=== PATIENT | female | born 1965 | race Caucasian/White ===

== ENCOUNTER 2021-05-20 17:11 | Inpatient (IN) | payer OTHER ==
[~2021-05-20] VITALS: Ht 172.7 cm; Wt 97.1 kg
--- OUTSIDE RECORDS SUMMARY | 2021-05-20 18:32 | XMS ---
PreManage Notification: [employer]ing Manager Events No recent Security Events currently on file [facility] There are no care providers on record at this time. David has no Care Guidelines for this patient. Lidia VISIT COUNT (12 MO.) 1 KAREN Tinajero TOTAL 1 NOTE: Visits indicate total known visits. ED/C VISIT TRACKING (12 MO.) 05/20/2021 17:12 KAREN Brown OR TYPE: Emergency COMPLAINT: - SOB INPATIENT VISIT TRACKING (12 MO.) No inpatient visits to display in this time frame [email or web address]
--- NOTE | 2021-05-20 21:11 | NUR ---
2100 - Pt arrived from ED via stretcher.
--- NOTE | 2021-05-20 21:28 | NUR ---
ADMISSION CHARTING COMPLETE, PT IS POOR HISTORIAN. SHE REPORTS SHE CAN NOT REMEBER OR IS UNSURE IN REDARDS TO HER HISTORY. SEE PAPER CHART FOR PACKET FROM [facility]
--- NOTE | 2021-05-20 22:13 | NUR ---
COOP WITH ASSESSMENT, WAS MEDICATED PRIOR TO DO SKIN ASSESSMENT
--- NOTE | 2021-05-20 23:35 | NUR ---
PT ON 3LNC, TELE#[address], SR WITH OCC SVPB'S, DENIES CP, NO SOB, CPOX IN PLACE. PT HAS VERY POOR SKIN TURGOR, TIPS OF FINGERS COOL, DUSKY, WARM BLANKET TO ARMS, BRUISED AREAS OVER ARM. SL FIELD START RFA. PATENT., NO C/O ADVERSE REACTION TO LEVAQUIN ABX. TOLERATED WELL. TOOK MEDS W/O PROBLEMS, MED ED DONE, PT WELL AWARE OF MEDS AND DOSAGES. FRAGILE SKIN, RASH OVER R AXILLA, UNDER R BREAST, R PANNUS AND R GROING, REDNESS AND WARMTH NOTED MID THICK TO TOES BILAT. TOES/HEEL DUSKY, POOR FINGER AND CAPILLARY REFILL, L HEEL OPEN AREA, ALLEVYN APPLIED SLIGHT BROWN DISCHARGE, NO ODOR. WOUND VAC OVER BUTTOKS AREA, PATENT. SCABBED OVER NOT OPEN AREAS OVER BACK UPPER THIGHS BILAT. ATTENDS IN PLACE.IS W/C BOUND, LE WEAKNESS, ALERT AND ORIENTED, IRRITABLE, ANXIOUS AFFECT, EASILY REDIRECTABLE
--- NOTE | 2021-05-20 23:53 | NUR ---
RESTING, 3lnc, NO DISTRESS, TELE#3 IN PLACE, CPOX IN PLACE, WOUND VAC PATENT. CALL LOIGHT AND FLUIDS AT BEDSIDE
--- NOTE | 2021-05-21 01:27 | NUR ---
INCONTINENT OF LARGE AMOUNT OF URINE, ATTENDS CHANGED, SKIN CARE, BARRIER CREAM APPLIED, SACRAL WOUND VAC IN PLACE, PATENT. ALLEVYN TO L HEEL PATENT, LE ELEVATED, DECREASED REDNESS LE NOTED, ELEVTED. COOPERATIVE WITH ASSESSMENT AND VITALS,TELE# [address] SR/SVR, DENIES CP OR SOB. CPOX IN PLACE SATS 88-90%. TIP OF FINGERS AND TOES MORE PINKISH, WARM BLANKETS IN PLACE. TOLERATING SANDWICH AND FLUIDS,
--- NOTE | 2021-05-21 03:05 | NUR ---
On 3LNC, CPOX in place 93% sats, tele#[address] SR, eyes closed, no distress, wound vac in place, legs elevated. call light and fluids at bedside
--- NOTE | 2021-05-21 05:55 | NUR ---
Pt has slept most of this shift. O2 2L NC on admission, raised up to 3L then to 5L then back down to 3L at 0545 as her sats were 100%. lungs dim at bases, occ most cough with yellow phlegms. while turning she desatted to 78% on 3L NC, increaesd to 4L then 5L and currently at 6LNC, IS hands on demonstration done after several cues only up to 500. Not very receptive to teaching, irritable mood when asked to take a deep breath and repositioning ear pulse ox probe or NC back in place. currently on 6LNC sats 91%. . tele#[address], NS with occ SVPB's. denies CP. Received lasix and bed weight was done at this time 104.9KG. Pt has several scabbed over areas over back of thighs and R groin area. has wound vac over sacral area. R heel open area had Allevyn dressing and it was replaced at this time again. LE redness, partially marked. decreased redness and edema to LE noted. elevated with pillows.
--- NOTE | 2021-05-21 07:20 | NUR ---
THIS RN RECEIVED REPORT FROM AILYN ROMAN. PT APPEARS TO BE RESTING AT THIS TIME WITH RESPIRTIONS NOTED AND PT IS CURRENTLY ON 6L NC.
[2021-05-21] MEDS ORDERED: TYLENOL EXTRA500 MG PO (08:00)
[2021-05-21] MEDS ORDERED: AMITRIPTYLINE H75 MG PO (08:01)
[2021-05-21] MEDS ORDERED: BUPRENORPHINE HC2 MG SL (08:02)
[2021-05-21] MEDS ORDERED: CALCIUM 600 +1 EAC5 PO (08:03)
[2021-05-21] MEDS ORDERED: ELIQUIS5 MG PO (08:04)
[2021-05-21] MEDS ORDERED: IRON325 M1 PO (08:05)
[2021-05-21] MEDS ORDERED: ADVAIR HFA 45-212 GM INH (08:05)
[2021-05-21] MEDS ORDERED: LASIX20 MG PO (08:06)
[2021-05-21] MEDS ORDERED: MUCINEX600 MG PO (08:07)
[2021-05-21] MEDS ORDERED: NEURONTIN800 MG PO (08:07)
[2021-05-21] MEDS ORDERED: ROBAFEN100 MG/5 M PO (08:08)
[2021-05-21] MEDS ORDERED: LEVOFLOXACIN500 MG PO (08:09)
[2021-05-21] MEDS ORDERED: IMODIUM A-D2 M2 PO (08:11)
[2021-05-21] MEDS ORDERED: THROAT DROPS2.8 MG MM (08:12)
[2021-05-21] MEDS ORDERED: NARCAN4 MG NAS (08:13)
[2021-05-21] MEDS ORDERED: NICODERM CQ1 EAC2 TOP (08:14)
[2021-05-21] MEDS ORDERED: HYDROCODON-ACE1 EA10 PO (08:14)
[2021-05-21] MEDS ORDERED: POTASSIUM CHLO10 ME2 PO (08:15)
--- NOTE | 2021-05-21 08:15 | NUR ---
THIS RN IN PTS ROOM TO GIVE MRONIGN MEDS. PT GORGY AND NOT ANSWERING QUESTIONS APPROPRIATLY. THIS RN CHECKED PTS OXYGEN 97% ON 6L NC. THIS RN TURNED PT DOWN TO 3L NC AND STATS RANGED 91-94%. PT TOLERATING WELL. THIS RN ASSISTED BY MARIE MAN CHANGED PT, PT AFTER BEING CHANGED STATES THAT SHE NEEDS TO PEE. SIMRAN MAN IN ROOM TO PUT PT ON BEDPAN. THIS RN DID NOTE THAT PTS TEGADERM WAS LIFTING OFF OF HER WOUND VAC SITE, WOUND CARE CONSULT IN.
[2021-05-21] MEDS ORDERED: PROBIOTIC1 EAC1 PO (08:16)
[2021-05-21] MEDS ORDERED: SEROQUEL25 MG PO (08:16)
[2021-05-21] MEDS ORDERED: VENTOLIN HFA18 GM INH (08:17)
[2021-05-21] MEDS ORDERED: TUMS200 MG PO (08:17)
--- NOTE | 2021-05-21 08:21 | NUR ---
MED REC COMPLETE
--- NOTE | 2021-05-21 09:30 | NUR ---
THIS RN IN PTS ROOM TO CHECK ON PT. THIS RN SPOT CHECKED PTS OXYGEN, PT STATING AT 84% 3L NC. THIS RN CHANGED PT OVER TO 5L OXYMASK. PT TOLERATING TREATMENT AND STATS NOW SUSTAINED GREATER THAN 91%. CPOX IN PLACE AND READING IN TANDEM WITH WALL MONITOR.
--- NOTE | 2021-05-21 12:45 | NUR ---
this rn pts room per request of avery quispe who was attempting a new iv. pt has muscle spasms so this rn provided pts arm with support. avery able to get an external juglar iv placed on the left side, draws back blood and flushes well. meds given. md in room.
--- NOTE | 2021-05-21 14:05 | NUR ---
this rn provided verbal update on pts status to pts sister in law rina.
--- NOTE | 2021-05-21 14:45 | NUR ---
WOUNE NURSE CONSULT COMPLETED ON PT WITH PRIMARY NURSE AT BEDSIDE. PT HAS STAGE 4 SACRAL PRESSURE INJURY WITH WOUND VAC IN PLACE. WOUND VAC HAS BECOME DISLODGED. WOUND VAC REPLACED AND POWER CORD DELIVERED FROM [facility]. WOUND BED IS PINK WITH GRANULATING TISSUE. NO S/SX OF INFECTION. MEASUREMENTS NOT ASSESSED. PRESSURE INJURY- UNSTAGABLE TO LEFT HEAL WITH DRY ESCHAR IN PLACE. ALLEVYN APPLIED OVER TOP. RIGHT HEEL WITH BLANCHABLE REDNESS. HEEL PROTECTORS PLACED AND HEELS FLOATED. PT TOLERATED DRESSING CHANGES WITH OUT ISSUE. WOUND VAC CAN BE CHANGED Q3 DAYS NEEDED. REDENED QUETA AREA/GROIN WITH SOMEESCORIATION PRESENT. KEEP AREA CLEAN/DRY AND APPLY BARRIOR CREAM.
--- NOTE | 2021-05-21 14:45 | NUR ---
THIS RN IN PTS ROOM WITH LOWELL ROMAN TO CHANGE PTS WOUND VAC DUE TO THE DRESSING LIFTING UP AT [facility]. ONCE DRESSING CHANGE WAS COMPLETE, STAFF NOTED THAT THERE WAS NO ACO COORDINATOR PRESENT, ANOTHER STAFF MEMEBER WAS ABLE TO COLLECT THE ACO COORDINATOR FROM PTS FACILITY. AT 1630- DRESSING PLACED TO SUCTION WTIH A GOOD SEAL NOTED ON MACHINE.
--- NOTE | 2021-05-21 16:45 | NUR ---
THIS RN IN PTS ROOM AFTER COMPLETED DRESSING CHANGE. THIS RN PROVIDED PT WITH TYLENOL DUE TO PT STATING "OW" WHENEVER STAFF TOUCHED HER, THIS IS WHERE SHE LOCALIZED HER PAIN, WHEREVER SHE WAS TOUCHED BY STAFF. PT FINALLY ABLE TO STATE THAT SHE WAS PAINFUL IN HER COCCYX AREA, THIS RN ASSISTED PT TO LAY ON HER RIGHT SIDE TO ALLEVIATE PAIN. THIS RN POSITIONED PT WITH PILLOWS FOR COMFORT. THIS RN ALSO TURNED PTS OXYGEN DOWN TO 4L NC. PT ABLE TO PRODUCE SOME GOOD COUGHS AFTER BEING MOVED AROUND IN BED- SECRETIONS MOVING.
--- NOTE | 2021-05-21 19:23 | NUR ---
O2 NC in place, no distress, eyes closed. call light and fluids at bedside
--- NOTE | 2021-05-21 22:00 | NUR ---
O2 3L NC, TELE/CPOX EAR PROBE 94%, REST 15, NON DISTRESS, PT IS A MOUTH BREATHER TOO. LUNGS UPPER R COARSE SOUND, DIM AT BASES. IRRITABLE MOOD, GOES BACK TO SLEEP, AWAKES EASILY. SL RFA PATENT, AND JUGULAR AREA. MULTIPLE BRUISING ARMS, HEALING, EDEMA GENERALIZED, REDNESS OVER R AXILLARY, R PANNUS, R GRON BEHINF BOTH THIGHS AND FRONT THIGHT BILAT, LEGS AND FEET, L HEEL ALLEVYN IN PLACE, HEEL PROTECTORS IN PLACE. SCABBED OVER AREA OPEN, MOIST, NO DRAINAGE BEHIND BOTH UPPER THIGHS ANR R GROIN. WOUND VAC OVER SACRAL AREA. INC OF URINE, REQUIERES SEVERAL CUES. CLEAN ATTENDS AND BARRIER CREAM APPLIED. LEGS ELEVATED, TOOK MEDS W/O PROBLEMS, MOIST PRODUCTIVE COUGH PRESENT, COUGH SYRUP GIVEN ON REQUESTS. TOLERATING LIQUIDS WELL. NO EMESIS. PT REQUIRED SEVERAL CUES TO PLACE IN SITTING POSITION IN BED TO TAKE MED, INFORMED OF POSSIBLE ASPIRATION IF TAKING MEDS WHILE LAYING DOWN, SEMI RECEPTIVE.
--- NOTE | 2021-05-22 00:20 | NUR ---
PT ON 3L NC, DESATTED TO 80%, PLACED BACK ON OXYMASK, PT AWOKEN, IRRITABLE MOOD, TOOK SEVERAL CUES FOR PT TO TAKE DEEP BREATHS, DECLINED TO USE IS. SATS 84%, RT NOTIFIED. RT INROOM, FIXING EAR PROBE/FINGER PROBE, PT RECEIVED A NEB TX, DROWSY. HOB ELEVATED. SATS WENT UP TO 95% AFTER TX. SATS DROPPED AGAIN SOON AFTERWARDS TO 84-87%, RT IN ROOM.
--- NOTE | 2021-05-22 00:25 | NUR ---
DR FULLER NOTIFIED OF PT UNABLE TO KEEP SATS UP, RESP 14-15, RT HERE AND HE TALKED TO HER. NEW ORDERS FOR VBG AND TO START BIPAP OBTAINED.
--- NOTE | 2021-05-22 00:42 | NUR ---
CBG PER NURSING JUDGEMENT. 86. LAB IN ROOM DRAWING VBG. RT IN ROOM, PT ON 3L OXYMASK SATS DROP BETWEEN 78-87%. PT DROWSY, PROCEDURE EXPLAINED, REQUIERES SEVERAL CUES TO BE COMPLIANT. MORE AWAKE NOW. BIPAP ON, RT CALCULATING SETTING
--- NOTE | 2021-05-22 01:26 | NUR ---
on bipap sats 91% R17, no distress, toleratiang well.
--- NOTE | 2021-05-22 01:34 | NUR ---
Pt on BIPAP, desatting to 83-85%, bipap on, RN in room, RT to see pt
--- NOTE | 2021-05-22 01:43 | NUR ---
on Bipap, sats 91-94%, per tele cpox ear probe changed to R ear. tele#[address] SR w occ SVPB's
--- NOTE | 2021-05-22 03:00 | NUR ---
iNCONTINENT OF URINE, ATTENDS CHANGED, TOLERATED WELL. ON BIPAP, SATS 89-96% R17, TOLERATING BIPAP AND SIPS OF FLUIDS. LE ELEVATED IN PILLOWS ALLEVYN TO LEFT HEEL INTACT. HEEL PROTECTORS IN PLACE
--- NOTE | 2021-05-22 05:08 | NUR ---
PT WAS ON 2-3L NC/OXYMASK AT BEGINING OF SHIFT, DESATTED DOWN TO 78% SEVERAL TIMES. VBG OBTAINED, WNL, WAS PLACED ON BIPAP 12//40%, HAS MAINTEINED SATS 89-96%. TOLERATING WELL. TELE#3 IN [place], SR WITH OCC SVPBS, DENIES CP. HAS BEEN VERY DROWSY, HAD QUICK PERIODS OF APNEA AND TWITCHING LIKE TREMORS OF UPPER BODY AND HANDS. RESOLVED AT THIS TIME. MULTIPLE BRUISING OF ARMS HEALING, DECREAESD REDNESS OF LE AND EDEMA NOTED. l JUGULAR IV PATENT, SL RA, WOUND VAC TO SACRAL AREA PATENT. L HEEL ALLEVYN IN PLACE, MULTIPLE RED AREAS OVER OTHER PARTS OF BODY NO CHANGES. IRRITABLE MOOD, SEMI RECEPTIVE TO INOFRMATION GIVE, CONT TO REINFORCE DIET AND O2 THERAPY. USES CALL LIGHT, INCONTINENT OF URINE.
--- NOTE | 2021-05-22 07:15 | NUR ---
this rn received report from kristie quispe. pt appears to be resting with respitations noted and call light within reach. pt on bipap at [facility] time
--- NOTE | 2021-05-22 08:00 | NUR ---
this rn in pts room to give morning meds. pt on bipap. pt tolerating well. this rn to come back to give meds. pt sating mid 90s. call light within reach
--- NOTE | 2021-05-22 08:20 | NUR ---
patient is resting in the bed with bipap on. this DEPARTMENT CHAIRPERSON reatached the O2 moniter to her ear. no needs at this time. room tidy, call light with in reach.
--- NOTE | 2021-05-22 13:35 | NUR ---
THIS RN IN PTS ROOM TO GIVE PT AFTERNOON MEDS. PT SITTING IN BED, PT ON 3L NC AT THIS TIME AND MORE ALERT THAN SHE WAS THIS AM. LAINEY MAN IN ROOM WITH THIS RN TO CHANGE PT DUE TO INCONTINENCE OF URINE. PT TOLERATED OKAY DID NOT COMPLAIN TOO MUCH OF PAIN. PT REPOSITIONED IN BED- HIPS FLOATED WITH PILLOWS TO PROVIDE RELIEF OF PRESSURE. PT STATES NOT NEEDING ANYTHING AT THIS TIME. 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
--- NOTE | 2021-05-22 14:51 | NUR ---
this rn placed pt on bipap at this time due to pt desatting to 78% on 3l nc.
--- NOTE | 2021-05-22 18:45 | NUR ---
THIS RN IN PTS ROOM TO CHANGE PT. THIS RN NOTED THAT PTSWOUND VAC WAS RAINING SEROSANGUINOUS FLUID. THIS RN ALSO NOTED THAT PT HAD TO OPEN SKIN TEARS NOW (1 WAS NOTED AROUND 1400 AND AN ALLEVEN WAS PLACED). THIS RNREMOVED INTIAL ALLEVYN AND PLACED A LARGE FOAM PAD AND SECURED WITH FOAM TAPE.
--- NOTE | 2021-05-22 20:16 | NUR ---
Pt on 3LNC, Lungs dim at bases with fine crackles, moist productive cough of yellow thick phlegm present, denies need for cough syrup.tele#3 SR, no c/o CP, no SOB during procedure, tolerated well. Wound Vac dressing to coccyx/sacrum area replaced. patent now, wound vac in place. procedure explained, pt cooperative. wouund vac dressing done by Kayla santillan primary RN and this nurse helping. foam dressing under thighs area pt instructed not to scratch them off, staed "mmmm,ok but I will if I start itching.. decreased redness R leg, decreased edema. open/red areas under R axilla, breast and R pannus much better. redness under R groin improving too. Desenex powder applied, Bruising to both arms and scabbed over areas healing, dry. Decreased redness to L Leg Lheel foam dressing in place intact, heel protectors in place. Pt incontinent of urine, skin care, barrier cream, clean attends in place. took meds w/o problems. Was medicated with 1 Percocet 5/10 pain. tolerating liquids well, no emesis. Currently more awake, watching tv, more pink colored to face and hands.
--- NOTE | 2021-05-22 23:00 | NUR ---
PT DESSATED TO 80%, SLEEPING, BIPAP IN PLACE. SATS INCREAESD WHEN TAKING A DEEP BREATH WHEN AWAKE, FINGER PROBE RECHECKED. WARM BLANKET TO HANDS AND SATS%. CPAP SETTING 04/25/40%, RESP 16-19. RT NOTIFIED AND HE CAME TO ROOM AND EXAMINED PT. TELE#[address] IN[address] sv EMELY AT 57BPM. DENIES CP OR SOB. L NECK REPOSITIONED, HOB ELEVATED. DR FULLER TO BE NOTIFIED
--- NOTE | 2021-05-22 23:06 | NUR ---
RT IN ROOM, PT REPOSITIONED IN BED, ON BIPAP SETTING O2% INCREAED TO 60%, SATS PER FINGERPROBE TELE/CPOX 86-89%
--- NOTE | 2021-05-22 23:13 | NUR ---
BIPAP SETTINGS INCREASED O2 TO 80%, PER CPOX SATS 91-94%. PT TOLERATING WELL, NO C/O SOB.
--- NOTE | 2021-05-22 23:44 | NUR ---
PT TOOK O2 PROBE OFF EAR, AND WAS TAKING BIPAP MASK OFF, PROCEDURES EXPLAINED, CDB ENCOURAGED, MOIST PRODUCTIVE COUGH PRESENT. BIPAP BACK ON SATS 997-100% ON 80%02. DECREASED TO 70%. RESP 17. WENT BACK TO SLEEP RIGHT AWAY. CALL LIGHT AT HANDS REACH, DENIES SOB. "IT WAS BOTHING MY NOSE, BIPAP MASK REPOSITIONED
--- NOTE | 2021-05-23 00:22 | NUR ---
Tolerating BIPAP. O2% decreased to 60%, sats 100% as per tele cpox, ear probe R14, leak rate 7. awakes easily,
--- NOTE | 2021-05-23 02:51 | NUR ---
Pt on BIPAP, o2% decreaesd to 50%, cpox reading 100%. R 17, no distress, awakes easily and goes back to sleep easily. wound vac patent. L leg elevated in pillows.
--- NOTE | 2021-05-23 04:18 | NUR ---
pt used call light, took bipap mask off and o2 ear probe off. desatted to 78%, placed back on O23LNC, sats up to 82%, increaed to 4LNC, and sats went up to 85-88%. pt has moist productive cough, and took NC O2 off to scratch nares and cough, not very receptive to teaching, hob elevated. desatted to 69% on room air. placed back on BIPAP at O2 50% resp 20. Incontinent of urine, skin care done, sacral wound vac patent. Allevyn to L heel come off, replaced. Pt very argumentative but redirectable, word salad but clear present. repositioned and pt helped. decreased edema to L leg noted compared to Right. elevated. decreaesd redness to both legs noted. tolerated sips of fluids
--- NOTE | 2021-05-23 04:47 | NUR ---
PT WAS ON O2 3LNC, INCREAED TO 4L SHE DESSAQTEED, USED BIPAP AFTER MUCH ENCOURAGEMENT. HAS TOLERATED IT MOST OF THIS SHIFT, TOOK BIPAP OFF AND SWITCHED TO O23-4l, THEN TOOK O2 TUBING OFF TO SCRATCH NARES AND COUGH, DESATTED TO 69% ON ROOM AIR. BACK ON BIPAP, AT 50%, SATTING 98-100%, RESP 14-22, NO SOB WITH EXERTION WHILE CHANGED ATTENDS NOTED. TELE#[address] SB-SR PULSE 54-63BPM. LUNGS DIM AT BASES WITH OCASSIONAL EXP WHEEXING AND FINE CRACKLES, HAS MOIST PRODUCTIVE COUGH. DECREAED REDNESS AND EDEMA TO LE. LEFT LESS EDEMATOUS THAN RIGHT. T+, RIGHT 1+ MUCH IMPROVED, REDNESS MUCH IMPROVED ON LE. WOUND VAC TO SACRAL AREA PATENT, DRESSING CHANGED AT CHANGE OF SHIFT YESTERDAY. COOPERATIVE,FOAM DRESSING TO BEHIND HIPS AREAS OPEN SORES. L HEEL ALLEVYN REPLACED. HEALING, FINGERS AND TOES PINK POOR TO FAIR PERFUSION. DAILY BED WEIGHT 100.6KG. CONTINUES TO BE DISORIENTED TO PLACE , DATE AND SITUATION WITH OCASSIONAL WORD SALAD, IRRITABILITY, ANGRY AND ARGUMENTATIVE AT TIMES, EASILY REDIRECTABLE. HAS SLEPT GOOD AND HAS STAYED AWAKE MORE THAN YESTERDAY, INVOLUNTARY BODY TREMORS STILL PRESENT BUT NOT MUCH YESTERDAY. LE ELEVATED. SL PATENT, TOLERATING LIQUIDS WELL, NO EMESIS
--- NOTE | 2021-05-23 06:38 | NUR ---
BIPAP SETTINGS O2% DECREASED FROM 50% TO 40%, AWAKES EASILY. CALL LIGHT AND FLUIDS AT BEDSIDE. LEGS ELEVATED W PILLOWS
--- NOTE | 2021-05-23 06:46 | NUR ---
SATS 90-95% PSER TELE CPOX EAR PROBE. ON BIPAP
--- NOTE | 2021-05-23 07:05 | NUR ---
THIS RN RECEIVED REPORT FROM AILYN ROMAN. PT APPEARS TO BE RESTING COMFORTABLY AT THIS ITME WITH SATS MAINTAINED IN MID 90S
--- NOTE | 2021-05-23 08:30 | NUR ---
THIS RN IN PTS ROOM TO GIVE PT MORNING MEDS. PT ON BIPAP. PT APPPEARS VERY COMFORTABLE ON THE BIPAP. PT ABLE TO TAKE MEDS WELL AND PLACED ON 3L NC, PT TOLERATING WELL AND READY FOR BREAKFAST. PT HAS NO OTHER NEEDS AT THIS TIME.
--- NOTE | 2021-05-23 09:45 | NUR ---
PATIENT SITTING UP IN BED WORKING ON BREAKFAST. THIS SOFTWARE SALES CONSULTANT AND JESSIE BAILON IN ROOM TO CHANGE PATIENT. QUETA CARE DONE. SKIN CARE DONE. NEW ATTENDS IN PLACE. INDEPENDENT VIDEO PRODUCER IN TO DO ECHO AT THIS TIME. CALL LIGHT IN REACH. NO FURHTER NEEDS AT THIS TIME.
--- NOTE | 2021-05-23 12:20 | NUR ---
fareed polanco and this rn in pts room to change pt at this time due to computer forensics technician coming down to scan pt. pt tolerated well and had minimal appetite for breakfast.
--- NOTE | 2021-05-23 15:00 | NUR ---
THIS RN IN PTS ROOM TO CHANGE PT. PT ON 3L NC AND SATING WELL. JENNIFER MAN IN ROOM WELL TO ASSIT WTIH CHANGING PT. PT STATES THAT SHE FEELS WET- PT HAD SOAKED THROUGH BED- BED CHANGE ENSUED AT THIS TIME. THIS RN NOTED THAT PTS WOUND VAC DRESSING WAS COMING OFF DUE TO PTS SATURATION LEVEL FROM URINE. THIS RN ALSO NOTED THAT PTS WOUND VAC CONTAINER WAS FULL. THIS RN DISCUSSED WITH MICHELLE RN FROM CASE MANAGEMENT TO CHANGE PTS WOUND VAC OVER TO HISPITALS FOR EASE OF DRESSING CHANGES- THIS IS TO BE DONE. GOLDTHWAITE STAFF NOTIFED OF DRESSING CHANGE STATUS- STATED THAT IT WAS COMMON TO NEED TO CHANGE DRESSING FREQUENTLY AT FACILITY. CALL LIGHT WITHIN REACH.
--- NOTE | 2021-05-23 16:20 | NUR ---
PT DESATED TO 74% ON 3L NC. THIS RN PLACED PT ON BIPAP. PT INTIALLY NOT WANTING TO WEAR BIPAP BUT ONCE IN PLACE PT STARTS TO FALL ASLEEP AND APPEARS TO BE COMFORTABLE WHILE WEARING MASK. PT SATS BACK UP TO LOW 90S ON BIPAP. THIS RN NOTIFIED RT BLAIR
--- NOTE | 2021-05-23 18:58 | NUR ---
THIS RN IN PTS ROOM TO CHANGE PTS WOUND VAC- DRESSING CHANGE TOOK 30+ MINS. THIS RN PLACED FOAM IN WOUND THEN PLACED TEGADERM OVER THAT. THEN CUT HOLE IN TEGADERM TO PLACE LONG FOAM STRIP- TEGADERM PLACED OVER THIS. THEN WOUND VAC ATTACHED. PT TOELRATING THIS WOUND VAC MUCH BETTER THIS RN ENCOURAGED PT TO DRINK AN ENSURE PT STATED "I DONT DRINK THAT CRAP" THIS RN DISCUSSED WTIH PT THAT SHE NEEDS TO TRY IT FOR HER WOUND- PT REFUSING STATES THAT SHE ONLY EATS CHIPS- THIS RN EDUCATED PT THAT CHIPS ARE NO LONGER IN HER DIET. CALL LIGHT WTIHIN REACH
--- NOTE | 2021-05-23 19:18 | NUR ---
PT CALLED OUT AND STATED THAT SHE WAS VOMITING UP JELLO- JENNIFER SPOOL WORKER ABLE TO CHANGE SHEETS AND THIS RN PROVIDED PT WITH 4MG ZOFAN AT THSI TIME. CALL LIGHT WITHIN REACH
--- NOTE | 2021-05-23 19:25 | NUR ---
pt RESTING IN BED WITH EYES CLOSED, BREATHING UNLABORED. 5L OXYGEN BY NC IN PLACE. CALL LIGHT WITHIN REACH.
--- NOTE | 2021-05-23 21:45 | NUR ---
pt RESTING IN BED AWAKE, ICE CHIPS ICE WATER PROVIDED. INCONTINENT OF URINE, ATTENDS CHANGED. REPOSITIONED TO FLOATING POSITION WITH PILLOWS UNDER BOTH HIPS. WOUND VAC DRESSING INTACT. REDNESS AND EXCORIATIONS NOTED IN QUETA AREA, RIGHT GROIN. ORDERED POWDER APPLIED. LEFT HEEL DRESSING CHANGED, ALLEVYN AND REINFORCED WITH GAUZE WRAP. HEEL PROTECTORS ON. pt RATES PAIN 8/10 ON "OPEN AREAS". SCHEDULED MEDICATION ADMINISTERED. pt ORIENTED TO SELF ONLY. KNOWS THAT SHE IS IN HOSPITAL, STATES "[facility]". BELIEVES IT MUST BE "2024". REORIENATION PROVIDED. OCCASIONAL WORD SALAD, RANDOM STATEMENTS FROM pt. CALL LIGHT IN REACH. LIGHTS OFF IN ROOM.
--- NOTE | 2021-05-24 00:38 | NUR ---
pt RESTING IN BED WITH EYES CLOSED. BREATHING UNLABORED. RR 16. LIGHTS OFF IN ROOM.
--- NOTE | 2021-05-24 03:00 | NUR ---
CHECKED ON pt. RESTING IN BED WITH EYES CLOSED, BREATHING UNLABORED. LIGHTS OFF IN ROOM. 3L OXYGEN BY NC IN NARES. LIGHTS OFF IN ROOM.
--- NOTE | 2021-05-24 05:41 | NUR ---
pt SLEEPING, AWAKENS TO VOICE. RATES PAIN 6/10 ON BACKSIDE AT WOUND VAC AND ON BACK. PRN PAIN MEDICATION ADMINISTERED. VSS. pt ON 3L OXYGEN BY NC. pt ENCOURAGED TO WEAR BIPAP, REFUSES STATES "IT HURTS MY NOSE". INCONTINENT OF URINE, ATTENDS CHANGED. REPOSITIONED WITH PILLOWS UNDER HIPS, BOOSTED IN BED. HEEL PROTECTORS ON. WOUND VAC REINFORCED WITH OP SITE, WNL. ICE WATER REFILLED. CALL LIGHT IN REACH.
--- NOTE | 2021-05-24 07:26 | NUR ---
Pt resting, eyes closed, O2 NC in place, wound vac. fluids and call light at hands reach
--- NOTE | 2021-05-24 08:30 | NUR ---
AWAKE, SITTING UP IN BED. WATCHING TV, MORE ALERT. O2 3LNC. LUNGS DIM AT BASES, WOUND VAC TO SACRAL AREA. DECREASED REDNESS AND EDEMA TO LE. BRUISING ARMS, HEALING, SORES UNDER THIGHS HEALING. REDNESS TO PANNUS AREA AND R GROING/QUETA AREA AND BACK, DESENEX POWDER APPLIED. ATTENDS IN PLACE, INCONTINENT OF URINE. LEGS ELEVATED. IRRITABLE MOOD BUT REDIRECTABLE. L JUGULAR SL AND RFA SL PATENT. RECEIVED LASIX IV, NO C/O PAIN. TOLERATING LIQUIDS WELL
--- NOTE | 2021-05-24 10:59 | NUR ---
PATIENT HAD INC. THIS LAND ACQUISITION ANALYST AND RN AILYN IN TO CHANGE PATIENT. QUETA CARE, SKIN CARE DONE. NEW ATTENDS IN PLACE. LINENS CHANGED. PATIENT REPOSITIONED WITH PILLOWS UNDER RIGHT HIP. VITALS AND I&O'S CHARTED. CALL LIGHT IN REACH. WARM BLANKET GIVEN. NO FURTHER NEEDS AT THIS TIME.
--- NOTE | 2021-05-24 11:00 | NUR ---
Spoke with Savanna. She resides at [facility] and would like to return there. She has [address] at 3L. Pt also has Sacral decub with wound vac in place. Pt uses a wc at [facility]. Pt denies other needs as needs are met at [facility]. Pt states she is working with PT there most days. Plans on return when cleared medically. 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 Her primary goal is to live with her sister in law and assist with the care of her brother.
--- NOTE | 2021-05-24 11:04 | NUR ---
PT INCONTINENT OF URINE. WOUND VAC SACRAL AREA DRESSING REINFORCED WITH OPSITE. PT COOP. C/O 11/27 PAIN SACRAL AREA AND BACK. MEDICATED WITH PERCOCET. ALERT TO SELF. WATCHING TV.
--- NOTE | 2021-05-24 12:13 | NUR ---
comfortable, awake, O2 3LNC, no distress, watching tv, wound vac in place, legs elevated. tolerating diet and fluids well. call light at hands reach. fall precautions in place heelprotectors
[2021-05-24] MEDS ORDERED: LASIX20 MG PO (12:39)
[2021-05-24] MEDS ORDERED: POTASSIUM CHLO10 ME2 PO (12:39)
[2021-05-24] MEDS ORDERED: CREON DR 6,0001 EACH PO (12:40)
[2021-05-24] MEDS ORDERED: ONDANSETRON ODT4 MG SL (12:41)
--- NOTE | 2021-05-24 13:00 | NUR ---
Received orders from Dr. Tolbert for return to [facility]. Called and spoke with Naveen from [facility]. He will request auth from the state as they are umnder executive orders. He requests for pt to transport at 3:30.
--- NOTE | 2021-05-24 13:30 | NUR ---
Called and scheduled transport by EMS to [facility] as pt will require 3 L 02. They will transport at 3:30 pm. Ordered covid swab. Faxed orders.
--- NOTE | 2021-05-24 14:19 | NUR ---
covid swab colected sent to in-house lab , no complications
--- NOTE | 2021-05-24 14:29 | NUR ---
Received text from Naveen and he received auth from the state. He did not recieve orders I faxed, refaxed orders. Awaiting covid test.
--- NOTE | 2021-05-24 15:25 | NUR ---
PT TURNED AND REPOSITIONED. [facility] WOUND [facility]AC. DISCONNECTED PT IS TO GO BACK TO [facility] WITH HER OWN WOUND VAC. DRESSING INTACT. 2 SL DC'D INTACT . DC INSTRUCTIONS GIVEN VERBALLY AND WRITTEN. PT ASKED QUESTIONS VERY CLEAR SPEECH AND UNDERSTANDING OF DC INSTRUCTIONS, MUCH IMPROVEMENT FROM ADMISSION. WAITING FOR TRANSPORT.
--- NOTE | 2021-05-24 16:17 | NUR ---
transport here to take pt to [place], via [facility] ambulance transport
--- NOTE | 2021-05-24 16:28 | NUR ---
Telephone report given to Shirin ROMAN at [place].
== END 2021-05-24 16:20 | DRG 291 ==
LOC: ED 17:11 → MS 20:27
PROVIDERS: ADMIT Internal Medicine; ATTEND Internal Medicine
DX: I50.43 Acute on chronic combined systolic (congestive) and diastolic (congestive) heart failure (principal); L89.154 Pressure ulcer of sacral region, stage 4; J80 Acute respiratory distress syndrome; F11.20 Opioid dependence, uncomplicated; K86.0 Alcohol-induced chronic pancreatitis; Z20.822 Contact with and (suspected) exposure to COVID-19; F44.4 Conversion disorder with motor symptom or deficit; E66.01 Morbid (severe) obesity due to excess calories; J43.9 Emphysema, unspecified; D64.9 Anemia, unspecified; I48.0 Paroxysmal atrial fibrillation; Z68.38 Body mass index [BMI] 38.0-38.9, adult; K21.9 Gastro-esophageal reflux disease without esophagitis; F10.10 Alcohol abuse, uncomplicated; G89.4 Chronic pain syndrome; F20.9 Schizophrenia, unspecified; F17.210 Nicotine dependence, cigarettes, uncomplicated; Z79.01 Long term (current) use of anticoagulants; Z79.899 Other long term (current) drug therapy; Z86.14 Personal history of Methicillin resistant Staphylococcus aureus infection; Z98.84 Bariatric surgery status
CPT/HCPCS: 71045; 80048; 80503; 82803; 83880; 85025; 86140; 93306; 94640; 94660; 94762; 97110; 97162; 97530; 99285-25; C9113; C9803; J0456; J1650; J1940; J1956; J2405; J7060; U0003

== ENCOUNTER 2021-05-31 19:25 | Emergency (ER) | payer OTHER ==
[~2021-05-31] VITALS: Ht 172.7 cm; Wt 97.5 kg
[~2021-05-31 19:25] MED LIST: ADVAIR HFA 45-212 GM INH; AMITRIPTYLINE H75 MG PO; BUPRENORPHINE HC2 MG SL; CALCIUM 600 +1 EAC5 PO; CREON DR 6,0001 EACH PO; ELIQUIS5 MG PO; HYDROCODON-ACE1 EA10 PO; IMODIUM A-D2 M2 PO; IRON325 M1 PO; LASIX20 MG PO; LEVOFLOXACIN500 MG PO; MUCINEX600 MG PO; NARCAN4 MG NAS; NEURONTIN800 MG PO; NICODERM CQ1 EAC2 TOP; ONDANSETRON ODT4 MG SL; POTASSIUM CHLO10 ME2 PO; PROBIOTIC1 EAC1 PO; ROBAFEN100 MG/5 M PO; SEROQUEL25 MG PO; THROAT DROPS2.8 MG MM; TUMS200 MG PO; TYLENOL EXTRA500 MG PO; VENTOLIN HFA18 GM INH
--- OUTSIDE RECORDS SUMMARY | 2021-05-31 19:28 | XMS ---
PreManage Notification: BLACK [place] Security Freezer Person Events No recent Security Events currently on file CRITERIA MET - [facility] - 2 Visits in 30 Days - [facility] CARE PROVIDERS There are no care providers on record at this time. David has no Care Guidelines for this patient. Lidia VISIT COUNT ([address] [facility] NOTE: Visits indicate total known visits. ED/C VISIT TRACKING (12 MO.) 05/31/2021 19[facility] COMPLAINT: - WEAKNESS 05/20/2021 17:12 [facility] [place] TYPE: Emergency COMPLAINT: - SOB INPATIENT VISIT TRACKING (12 MO.) 05/20/2021 20:27 [facility] TYPE: Medical Surgical COMPLAINT: - PNEUMONIA DIAGNOSES: - Acute respiratory distress syndrome - Paroxysmal atrial fibrillation - Acute on chronic combined systolic (congestive) and diastolic (congestive) heart failure - Alcohol-induced chronic pancreatitis - Other skilled nursing (current) drug therapy - Chronic pain syndrome - Viral pneumonia, unspecified - technician terminal and repeater (current) use of anticoagulants - Personal history of Methicillin resistant Staphylococcus aureus infection - Morbid (severe) obesity due to excess calories - Schizophrenia, unspecified - Anemia, unspecified - Pressure ulcer of sacral region, stage 4 - Alcohol abuse, uncomplicated - Bariatric surgery status - Nicotine dependence, cigarettes, uncomplicated - Pneumonia, unspecified organism - Opioid dependence, uncomplicated - Body mass index [BMI] 38.0-38.9, adult - Conversion disorder with motor symptom or deficit - Emphysema, unspecified - Gastro-esophageal reflux disease without esophagitis [email or web address]
== END 2021-05-31 23:00 | disposition home or self-care (01) ==
LOC: ED 19:25
DX: R09.02 Hypoxemia (principal); Z20.822 Contact with and (suspected) exposure to COVID-19; J44.9 Chronic obstructive pulmonary disease, unspecified; K21.9 Gastro-esophageal reflux disease without esophagitis; I50.9 Heart failure, unspecified; Z79.899 Other long term (current) drug therapy
CPT/HCPCS: 71045; 99285-25; C9803; U0003

== ENCOUNTER 2021-07-02 16:48 | Inpatient (IN) | payer OTHER ==
[~2021-07-02] VITALS: Ht 172.7 cm; Wt 95.7 kg
[~2021-07-02 16:48] MED LIST changes: -ROBAFEN100 MG/5 M PO; -TUMS200 MG PO; +[UNRECOGNIZED DRUG - SUPPLY] TOP
--- OUTSIDE RECORDS SUMMARY | 2021-07-02 16:50 | XMS ---
PreManage Notification: BLACK W[place]ACE Security Sorter Operator Events No recent Security Events currently on file CRITERIA MET - 6 ED Visits in 6 Months - [facility] - 2 Visits in 30 Days - [facility] CARE PROVIDERS KATIE DE LA CRUZ Salon Coordinator Current ANA Story PHONE: [phone] [facility] Current PHONE: Unknown SAMUEL WADE Internal Medicine Current PHONE: Unknown Elly Escudero Trackwalker/Tone Artist Apprentice 02/18/2021-Current PHONE: [phone] JACOB RASHID Nurse Practitioner Current PHONE: [phone] REBECA BURNETT Nurse Practitioner: Current PHONE: Unknown BRITNI ELLINGTON Internal Medicine Current PHONE: Unknown BLAISE DE SOUZA Internal Medicine Current PHONE: [phone] LUPE BOOTHE Video Tape Editor Current PHONE: [phone] JONATHAN FREGOSO Nurse Practitioner Current PHONE: [phone] MICHEAL LAUREN I. Physician Offender Job Retention Specialist Current PHONE: Unknown KENNETH BURDICK Trackwalker/Tone Artist Apprentice Current INACTIVE PHONE: [phone] ERIN Nurse Sumit GALLARDO PHONE: [phone] KENNY [facility] Nursing [facility] Current PHONE: Unknown [facility] Current PHONE: [phone] GIGI BURCH Registered Nurse Current PHONE: [phone] DANIELLE VARGAS Physician Current PHONE: Unknown David has no Care Guidelines for this patient. Lidia VISIT COUNT (12 MO.) [address] [place] [facility]. TOTAL 7 NOTE: Visits indicate total known visits. ED/UCC VISIT TRACKING (12 MO.) 07/02/2021 16:48 [facility] [place] TYPE: Emergency COMPLAINT: - ALTERED 06/10/2021 08:16 [facility] [place] TYPE: Emergency COMPLAINT: - FALL,TAILBONE PAIN DIAGNOSES: - Contusion of right lower leg, initial encounter - Heart failure, unspecified - Pain in left hip - Contusion of left foot, initial encounter - correction (current) use of inhaled steroids - Fall on same level, unspecified, initial encounter - Gastro-esophageal reflux disease without esophagitis - correction (current) use of opiate analgesic - Contusion of left lower leg, initial encounter - Other manager long term care (current) drug therapy - Chronic obstructive pulmonary disease, unspecified - correction (current) use of anticoagulants - History of falling 05/31/2021 19:26 [facility] [place] TYPE: Emergency COMPLAINT: - WEAKNESS DIAGNOSES: - Chronic obstructive pulmonary disease, unspecified - Hypoxemia - Other manager long term care (current) drug therapy - Heart failure, unspecified - Gastro-esophageal reflux disease without esophagitis 05/20/2021 17:12 [facility] [place] TYPE: Emergency COMPLAINT: - SOB 02/15/2021 15:01 [email or web address] [place] TYPE: Emergency DIAGNOSES: - PAIN 02/14/2021 10:48 [facility] [place] TYPE: Emergency DIAGNOSES: - Urinary tract infection, site not specified - Pressure ulcer of sacral region, stage 3 - Adult failure to thrive - BED SORES 02/08/2021 12:11 [facility] OR TYPE: Emergency DIAGNOSES: - Pressure ulcer of sacral region, stage 3 - FAILURE TO THRIVE - Adult failure to thrive INPATIENT VISIT TRACKING (12 MO.) 05/20/2021 20:27 [facility] [place] TYPE: Medical Surgical COMPLAINT: - PNEUMONIA DIAGNOSES: - Viral pneumonia, unspecified - Bariatric surgery status - Conversion disorder with motor symptom or deficit - termite exterminator helper (current) use of anticoagulants - Alcohol abuse, uncomplicated - Pressure ulcer of sacral region, stage 4 - Acute respiratory distress syndrome - Schizophrenia, unspecified - Morbid (severe) obesity due to excess calories - Personal history of Methicillin resistant Staphylococcus aureus infection - correction (current) use of anticoagulants - Chronic pain syndrome - Chronic pain syndrome - Nicotine dependence, cigarettes, uncomplicated - Morbid (severe) obesity due to excess calories - Body mass index [BMI] 38.0-38.9, adult - Other usp (current) drug therapy - Alcohol-induced chronic pancreatitis - Acute on chronic combined systolic (congestive) and diastolic (congestive) heart failure - Acute on chronic combined systolic (congestive) and diastolic (congestive) heart failure - Paroxysmal atrial fibrillation - Opioid dependence, uncomplicated - Anemia, unspecified - Paroxysmal atrial fibrillation - Anemia, unspecified - Bariatric surgery status - Gastro-esophageal reflux disease without esophagitis - Alcohol abuse, uncomplicated - Emphysema, unspecified - Alcohol-induced chronic pancreatitis - Emphysema, unspecified - Gastro-esophageal reflux disease without esophagitis - Schizophrenia, unspecified - Pressure ulcer of sacral region, stage 4 - Conversion disorder with motor symptom or deficit - Body mass index [BMI] 38.0-38.9, adult - Opioid dependence, uncomplicated - Pneumonia, unspecified organism - Other usp (current) drug therapy - Nicotine dependence, cigarettes, uncomplicated - Acute respiratory distress syndrome - Personal history of Methicillin resistant Staphylococcus aureus infection 02/15/2021 15:01 [facility] [place] TYPE: Medical Surgical DIAGNOSES: - Acute cystitis with hematuria - Adult failure to thrive - Pressure ulcer of sacral region, unstageable - Pressure-induced deep tissue damage of sacral region - Acute cystitis without hematuria 07/30/2020 21:[address] [facility] TYPE: Internal Medicine DIAGNOSES: 55748. Cutaneous abscess, unspecified 04871. Abscess [L02.91] 40107. Intrtaabdominal Abscess 09139. Chronic diastolic (congestive) heart failure . Acute pancreatitis with uninfected necrosis, unspecified . Morbid (severe) obesity due to excess calories . Unspecified protein-calorie malnutrition . Body mass index [BMI] 45.0-49.9, adult 07/07/2020 17:49 [facility] TYPE: Swing Bed DIAGNOSES: - Weakness - Peritoneal abscess - intra abdominal abcess [email or web address]
--- NOTE | 2021-07-02 21:00 | NUR ---
PATIENT ARRIVED TO THE UNIT VIA STRETCHER. MOVED OVER TO BED WITH MAX ASSIST, 3PA. PATIENT IS LETHARGIC, OPENS HER EYES TO PAIN ONLY. VS STABLE. TITRATED TO 2L NC. IV FLUIDS STARTED. DRESSING CHANGED ON CENTRAL LINE USING STERILE PROCEDURE AND CENTRAL LINE KIT. TRIPLE LUMEN, ALL RETURN BLOOD BRISKLY. EJ ON LEFT FLUSHES EASILY AND RETURNS BLOOD, DRESS INTACT. PATIENT HAS MULTIPLE WOUNDS THAT WILL REQUIRE ATTENTION AND DOCUMENTATION, WOUND CARE CONSULT PLACED. IN TO SEE PATIENT. PATIENT IS MINIMALLY RESPONSIVE, TWITCHING REGULARLY. IV KEPPRA ORDERED. BLOOD GLUCOSE 97, WILL CONTINUE TO MONITOR CLOSELY. RIZO IN PLACE, DRAINING DARK YELLOW URINE. FACILITY CALLED, REQUESTED RECORDS BE FAXED.
--- NOTE | 2021-07-02 22:30 | NUR ---
PICTURES AND DRESSINGS PLACED ON WOUNDS. LEFT HEEL HAS UNSTAGABLE PRESSURE SORE; CLEANED AND ALYVEN PLACED. HEEL PROTECTORS ON. RIGHT HAND SKIN TEAR CLEANED AND STERI STRIPS REMOVED AND ALYVEN PLACED OVER. STAGE 4 PRESSURE SORE ON COCCYX CLEANED AND COCCYX ALYVEN PLACED. PATIENT DID NOT RESPOND TO TREATMENTS. SMALL BM NOTED. PATIENT REPOSITIONED TO LEFT SIDE. 1L NC. PATIENT RESPONSIVE TO SOME PAINFUL STIMULI, OPENS EYES BUT DOES NOT MAKE EYE CONTACT OR SEEM AWARE. VS STABLE.
--- NOTE | 2021-07-03 01:00 | NUR ---
PATIENT HAS NO CHANGES IN MENTAL STATUS, BP TRENDING DOWN. SYSTOLIC 88, MAPS GREATER THAN 60. TOLERATING ROOM AIR. REPOSITIONED TO RIGHT SIDE. GOOD URINE OUTPUT.
--- NOTE | 2021-07-03 02:00 | NUR ---
BLOOD GLUCOSE 83, WILL CONTINUE TO MONITOR. NO CHANGES IN MENTAL STATUS. VS STABLE. SOFT BP.
--- NOTE | 2021-07-03 05:00 | NUR ---
PATIENT IS HYPOGLYCEMIC; 73. 25 ML D50 PROVIDED. PATIENT REPOSITIONED IN THE BED. IV FLUIDS PER ORDER. GOOD URINE OUTPUT. VS STABLE. RT HAD PLACED ETCO2 ON PATIENT; READING 20-25. PATIENT'S RR ONLY 8-10. O2 SATS 95% ON ROOM AIR.
--- NOTE | 2021-07-03 06:00 | NUR ---
LAB RESULTS, HYPOTENSION (75/49), MENTAL STATUS, AND RR DISCUSSED WITH MD. ORDERS RECEIVED FOR HEAD CT, ABG, NOREPI, ROCEPHIN, AND TYPE& SCREEN. LAB IN FOR DRAW; ASSISTED BY FAINA ROMAN. STARTED ON NOREPI. RT IN ROOM FOR ABG DRAW. THIS RN TOOK PATIENT TO CT WITH RT ALYSSIA ASSISTANCE. PATIENT HAD NO RESPONCE TO TRANSFER. RETURNED TO ROOM.
--- NOTE | 2021-07-03 07:30 | NUR ---
report recieved. REMAINS ON LEVOPHED GTT AT 2 MCG/MIN. IVF AT 125 ML/HR. RIZO CATH PATENT WITH CLEAR LORA URINE NOTED. LEJ INTACT. RIJ TRIPLE LUMEN CATH INTACT.
--- NOTE | 2021-07-03 08:00 | NUR ---
ASSESSMENT DONE. NOT FOLLOWING COMMANDS, HAS MILD SHAKES. RESP RATE 8. HAS OCC MINIMAL MOVEMENT OF EXTREMITIES. WILL MOAN WITH MOVEMENT.
--- NOTE | 2021-07-03 08:30 | NUR ---
ACCUCHECK-85. LACTALOSE ENEMA GIVEN WITH RETURN OF DARK SOFT TO LIQUID STOOL. TOLERATED EMEMA WELL. REMAINS NON-VERBAL. WILL MOAN WITH MOVEMENT. NO CHANGES IN RATE OF IVF OR LEVOPHED GTT.
--- NOTE | 2021-07-03 09:30 | NUR ---
DRESSING TO LARGE DECUB ON COCCYX OFF, SOILED R/T BM FROM ENEMA THAT WAS GIVEN EARLIER. WILL LEAVE DRESSING OFF FOR NOW. CONTINUES TO HAVE LIQUID STOOL.
--- NOTE | 2021-07-03 10:00 | NUR ---
CONTINUES TO HAVE STOOL. STOOL IS DARK IN COLOR, HEMATEST NEGATIVE.
--- NOTE | 2021-07-03 12:00 | NUR ---
ASSESSMENT DONE. NO CHANGES.
--- NOTE | 2021-07-03 14:00 | NUR ---
ACCUCHECK-114. IVF OF D5 1/2 NS WITH 20 KCL INFUSING TO RIJ.
--- NOTE | 2021-07-03 14:30 | NUR ---
HAS BEEN REPOSITIONED FREQUNETLY. HAS ONLY BEEN ON SIDES NOT BACK. NO CHANGES IN NEURO STATUS. WILL OPEN EYES BREIFLY WHEN NAME SAID LOUDLY, THEN SHUT AGAIN. WILL SAY OUCH OR OW WHEN IN PAIN WITH MOVEMENT. ORAL CARE GIVEN.
--- NOTE | 2021-07-03 15:30 | NUR ---
WOUND CARE NURSE HERE TO SEE AND TREATMENT WOUNDS TO COCCYX AND LEFT HEEL. PATIENT WILL WITHDRAWAL TO PAIN, OPEN EYES OCC. ONCE TO NAME. WILL NOT FOLLOW COMMANDS. ASSESSMENT DONE.
--- NOTE | 2021-07-03 16:30 | NUR ---
REPOSITIONED. NO FUTHER CHANGES IN NEURO STATUS.
--- NOTE | 2021-07-03 18:51 | NUR ---
LEVOPHED GTT REMAINS AT 2 MCG/MIN. HAS NOT BEEN TITRATED ALL DAY. IVF INFUSING AT 125 ML/HR. RIZO CATH PATENT. WILL OPEN EYES OCC. MOANS, VERY MINIMAL WORDS.
--- NOTE | 2021-07-04 00:12 | NUR ---
PATIENT REPOSITIONED TO HER LEFT SIDE FROM HER RIGHT SIDE. ATTEMPTS TO LIMIT PRESSURE ON HER COCCYX. PATIENT STATES "OWE" WHEN PILLOWS REMOVED FROM UNDER HER LEGS, WHEN ASKED IF IT IS HER LEG THAT HURTS THE PATIENT SAYS "YEAH". PATIENT DOES NOT OPEN HER EYES OR COMMUNICATE FURTHER. ATTEMPTS TO ASK HER TO SAY HER LAST NAME OR FOLLOW INSTRUCTIONS NOT FOLLOWED. PATIENT KEEPS EYES CLOSED. VS STABLE. OFF THE NOREPI SINCE ABOUT 1999, ADEQUATE BP. URINE OUTPUT IS MARGINAL. IV FLUIDS AND ABX INFUSING. CENTRAL LINE SITE WNL. EJ ON LEFT ALSO WNL. ARMS AND LEGS POSITIONED CAREFULLY, ELEAVTED ON PILLOWS TOLERATED. ATTENDS IS CLEAN AND DRESSING ON COCCYX INTACT. HEEL PROTECTORS ON.
--- NOTE | 2021-07-04 02:00 | NUR ---
ACCU CHECK DONE. BLOOD GLUCOSE WNL. PATIENT OPENS EYES BUT DOES NOT RESPOND TO VOICE. VS STABLE. IV FLUIDS PER ORDER, SITE WNL. PATIENT APPEARS COMFORTAABLE. POSITIONED TO REDUCE PRESSURE ON HEELS AND COCCYX FOR WOUND HEALING.
--- NOTE | 2021-07-04 04:17 | NUR ---
PATIENT REPOSITIONED TO HER RIGHT SIDE. PATIENT GRIMACED WITH MOVEMENT BUT DOES NOT RESPOND TO VERBAL STIMULI. VS STABLE. GOOD URINE OUTPUT. ATTENDS CLEAN. COCCYX DRESSING INTACT. HEEL PROTECTORS ON.
--- NOTE | 2021-07-04 05:17 | NUR ---
MORNING LABS DRAWN FROM ON RIGHT. IVF STOPPED, 6ML WASTED AND THEN SAMPLE TAKEN. LAB IN ROOM TO COLLECT. ALL PORTS FLUSHED WITH 10ML NS.
--- NOTE | 2021-07-04 06:46 | EKG ---
[facility] [address] [place], [place] [address] Signed Normal sinus rhythm Rightward axis Nonspecific intraventricular conduction delay ST \T\ T wave abnormality, consider anterior ischemia Abnormal ECG No previous ECGs available Confirmed by WILLIE DC MD ([id number]) on 07/04/2021 6:46:13 AM Electronically Signed By: WILLIE DC MD 07/04/21 0646 PATIENT NAME: YULISSA WALLACEMY Electrocardiogram DATE OF : 63 PHYSICIAN: WILLIE DC MD REPORT #: [id number] REPORT IS CONFIDENTIAL AND NOT TO BE RELEASED WITHOUT AUTHORIZATION
--- NOTE | 2021-07-04 07:30 | NUR ---
REPORT RECIEVED. RESTFUL IN BED, NO DISTRESS NOTED. IVF PATENT, RIZO CATH PATENT.
--- NOTE | 2021-07-04 08:00 | NUR ---
ASSESSMENT DONE. IS ABLE TO OPEN EYES AND WILL SAY A FEW WORDS. DR. DC HERE TO SEE PATIENT AND IS AWARE OF NEURO STATUS. WILL TRY TO GRASP MY HAND WHEN WHEN ASKED. IS WITH EXTREME WEAKNESS. FLACCID, LETHARGIC. HAS PAIN WITH MOVEMENT. ACCUCHECK 125.
[2021-07-04] MEDS ORDERED: CALCIUM 600-VI1 EA10 PO (09:26)
--- NOTE | 2021-07-04 09:30 | NUR ---
LACTULOSE ENEMA GIVEN ORDERED. TOLERATED FAIR. WITH RETURN OF GREENISH LIQUID STOOL. ALLEVYN TO COCCYX AREA REAPPLIED. ON BEDPAN NOW. ORAL CARE GIVEN.
[2021-07-04] MEDS ORDERED: GERI-KOT8.6 MG PO ×2 (10:27→11:45)
[2021-07-04] MEDS ORDERED: POTASSIUM CHLO10 ME1 PO (10:40)
[2021-07-04] MEDS ORDERED: VITAMIN D31250 MC1 PO (10:44)
--- NOTE | 2021-07-04 11:00 | NUR ---
OPENING EYES, SAID HI, WILL NOT FOLLOW COMMANDS AT THIS TIME. GRASP HAND EARLIER AND WIGGLED TOES EARLIER, BUT NOT ABLE AT THIS TIME. ORAL CARE GIVEN.
[2021-07-04] MEDS ORDERED: CREON DR 6,0001 EACH PO (11:28)
[2021-07-04] MEDS ORDERED: DULCOLAX5 MG PO (11:43)
[2021-07-04] MEDS ORDERED: DULCOLAX10 MG PR (11:44)
[2021-07-04] MEDS ORDERED: FLEET ENEMA133 ML PR (11:45)
[2021-07-04] MEDS ORDERED: NARCAN4 MG NAS (11:48)
--- NOTE | 2021-07-04 11:50 | NUR ---
MED REC COMPLETE
--- NOTE | 2021-07-04 13:21 | NUR ---
PT RESPONDED WITH A YES WHEN I ASKED IF I COULD ENTER HER RM. PT UNABLE TO GIVE ANY OTHER RESPONSES. PRAYED FOR PT, WILL CHECK BACK
--- NOTE | 2021-07-04 16:00 | NUR ---
MORE ALERT AT THIS TIME. WILL GRASP HANDS AND WIGGLE TOES ON REQUEST. ASSESSMENT DONE. DR. DC AWARE OF DECREASED URINARY OUTPUT. NO FUTHER ORDERS. REPOSITIONED. NO FUTHER CHANGES.
--- NOTE | 2021-07-04 16:59 | NUR ---
INTO PATIENT ROOM TO ASSIST BELINDA RN AND DANITZA RN WITH REPOSITIONING THE PATIENT. PATIENT DOES NOT RESPOND TO QUESTIONS, BUT RESPONDS TO MOVEMENT BY SAYING "OUCH." WILL RETURN TOMORROW TO ATTEMPT TO ASSESS PATIENT FOR DISCHARGE NEEDS.
--- NOTE | 2021-07-04 18:44 | NUR ---
TOOK FEW SIPS OF WATER VIA STRAW. MORE INTERACTIVE.
--- NOTE | 2021-07-04 19:30 | NUR ---
REPORT RECEIVED FROM SHAHLA RN, WILL CONTINUE PLAN OF CARE.
--- NOTE | 2021-07-04 21:08 | NUR ---
PT LAYING IN BED AT THIS TIME AWAKE. PT RESPONDS WITH ONE WORD ANSWERS SUCH "HELLO, NO, YES" AND FOLLOWS SIMPLE COMMANDS. PT DOES NOT ANSWER WHEN ASKED TO REPEAT HER NAME, , OR LOCATION. PT VITALS TAKEN, IVF INFUSING ORDERED INTO CENTRAL LINE. LUMENS FLUSHING AND RETURNING BLOOD, SITE WNL. IV ON LEFT EXTERNAL JUGULAR FLUSHING WELL AND WNL. DR. DC UPDATED ON PT. AND WAS THERE TO ASSESS PT. ORDERS TO BE CHANGED PT NOW ABLE TO DRINK FLUIDS WITHOUT COUGHING OR SIGNS OF ASPIRATION. SCHEDULED MEDICATIONS ADMINISTERED (SEE MAR). PT ABLE TO TAKE PO LACTULOSE WITHOUT DIFFICULTY. PT REPOSITIONED AFTERWARDS, NEW DRY GAUZE AND ALLEVYN PALCED ON COCCYX PREVIOUS WAS SOILED WITH DRAINAGE. NEW PAD AND DRAWSHEET UNDER PT. PILLOWS PLACED UNDER PT'S LEFT SIDE. NO FURTHER NEEDS ASSESSED AT THIS TIME, PT NOW LAYING IN BED RESTING. WILL CONTINUE PLAN OF CARE. CALL LIGHT IN REACH, BED IN LOWEST POSITION, IV MEDICATIONS INFUSING ORDERED.
--- NOTE | 2021-07-04 23:04 | NUR ---
PT SLEEPING IN BED ON ROOM AIR AT THIS TIME. PT BP RETAKEN AFTER READJUSTING BP CUFF. PT AWOKE EASILY BUT STILL DOES NOT RESPOND WITH WORDS AT THIS TIME. PT REPOSITIONED AT THIS TIME AND PILLOWS PLACED UNDER BOTH HIPS, PT STATED "OW/OUCH" WHEN DOING SO. PT NOW RESTING IN BED AND IS IN NO APPARENT DISTRESS. IVF AND IV ABX INFUSING AT ORDERED RATES AT THIS TIME. NO FURTHER NEEDS ASSESSED, WILL CONTINUE PLAN OF CARE. BED IN LOWEST POSITION.
--- NOTE | 2021-07-04 23:50 | NUR ---
PT LAYING IN BED SLEEPING AT THIS TIME SLEEPING. IVF INFUSING ORDERED (SEE MAR). PT AWOKE EASILY AT THIS TIME BUT STILL DOES NOT ANSWER QUESTIONS WHEN ASKED AND WILL STATE "OUCH" WHEN DOING CARES/ASSESSMENT. VITALS TAKEN AND PT ASSESSMENT COMPLETE AT THIS TIME (SEE CHART). PT ON ROOM AIR STILL, LUNGS CLEAR IN UPPER LOBES AND CLEAR/DIMINISHED IN THE BASES. PT HAS NOT HAD A BM YET , PERIAREA CLEAN. NO FURTHER NEEDS ASSESSED AT THIS TIME, RIZO DRAINING CLEAR YELLOW URINE, IVF INFUSING ORDERED, PT IN NO APPARENT DISTRESS, NO FURTHER NEEDS ASSESSED, WILL CONTINUE PLAN OF CARE.
--- NOTE | 2021-07-05 01:26 | NUR ---
PT LAYING IN BED SLEEPING AT THIS TIME. IVF INFUSING ORDRED. NEW BAG OF D5 1/2NS + 20K STARTED AND INFUSING AT ORDERED RATE (SEE MAR). CBG ASSESSED AND WAS 96. PT AWOKE EASILY BUT STILL DOES NOT REPLY TO QUESTIONS. PT IN NO APPARENT DISTRESS. PT REPOSITIONED AND PILLOW REMOVED FROM UNDER RIGHT HIP. WILL CONTINUE PLAN OF CARE.
--- NOTE | 2021-07-05 02:52 | NUR ---
IV POTASSIUM PHOSPHATE COMPLETED, LUMEN ON CENTRAL LINE SALINE LOCKED. PT SLEEPING AND AWOKE EASILY DURING SALINE LOCK BUT RETURNED. TO SLEEP. PT STILL NOT RESPONDING TO QUESTIONS APPROPRIATELY WHEN ASKED. PT IN NO APPARENT DISTRESS AT THIS TIME, WILL CONTINUE PLAN OF CARE. CALL LIGHT IN RECH, BED IN LOWEST POSITION. IVF INFUSING ORDERED, RIZO DRAINING.
--- NOTE | 2021-07-05 03:04 | NUR ---
PT SLEEPING IN BED AT THIS TIME. PILLOW PLACED UNDER LEFT HIP AT THIS TIME. PT REPORTS NO FURTHER NEEDS AND RETURNED BACK TO SLEEP, WILL CONTINUE PLAN OF CARE.
--- NOTE | 2021-07-05 04:34 | NUR ---
PT LAYING IN BED SLEEPING, IVF INFUSING ORDERED. PT AWOKE EASILY AT THIS TIME, EYES OPEN, BUT PT DOES NOT RESPOND TO QUESTIONS AT THIS TIME. PT VITALS TAKEN AND ASSESSMENT COMPLETED (SEE CHART). PT NOTED TO BE INCONTINENT OF A LIQUID BM AT THIS TIME, PERICARE DONE, DESITIN PLACED. ALLEVYN ALSO SATURATED AT THIS TIME WITH DRAINIAGE, NEW GAUZE AND ALLEVYN PLACED OVER, SITE C/D/I AT THIS TIME, NO PURULENT DRAINAGE NOTED. PT REPOSITIONED UP IN BED AFTERWARDS AND PILLOWS PLACED UNDER LEFT SIDE. NO FURTHER NEEDS ASSESSED AT THIS TIME, PT IN NO APPARENT DISTRESS, WILL CONTINUE PLAN OF CARE.
--- NOTE | 2021-07-05 05:23 | NUR ---
PT LAYING IN BED SLEEPING AT THIS TIME. IVF STOPPED MOMENTARILY AND LABS DRAWN FROM CENTRAL LINE AFTER WASTING 5ML. IVF RESUMED AT ORDERED RATE, LABS SENT. PT AWOKE BRIEFLY BUT RETURNED TO BED, PT IN NO APPARENT DISTRESS AND NOW SLEEPING, WILL CONTINUE PLAN OF CARE.
--- NOTE | 2021-07-05 09:00 | NUR ---
RECEIVED MORNING REPORT AT 0730, ENTERED PTS ROOM AT 0820 FOR CLAIMS CONSULTANT AND MORNING ASSESSMENT. PT WAS AWAKE AND ALERT. UPON ASSESSMENT PT HAS REDNESS ON LOWER RIGHT EXTREMITY AND REPORTS PAIN WITH MOVEMENT. PT IS NOT COMPLIANT WITH EATING BUT WAS ATTEMPTED TO BE PROVIDED APPLE JUICE, JELLO, AND ENSURE. PT DRANK SOME ENSURE WITHOUT ANY COUGHING OR DIFFICULTY SWALLOWING PRESENT BUT REFUSES TO CONSUME ANYMORE. CALL LIGHT IS WITHIN REACH.
--- NOTE | 2021-07-05 09:30 | NUR ---
PT REQUESTED TO GET OUT OF BED. THIS SN, [facility], AND 2 ADDITIONAL RN'S USED CLAUDIA LIFT TO TRANSPORT PT FROM BED TO RECLINER. PT TOLERATED WELL AND IS NOW SEATED IN RECLINER WITH CALL LIGHT IN LAP. NUTRITION EDUCATION WAS PROVIDED BY RN BUT PT IS STILL REFUSING TO COMPLY WITH TREATMENT PLAN.
--- NOTE | 2021-07-05 09:45 | NUR ---
PT ENTERED AFIB RHYTHM AND WAS ATTEMPTING TO GET OUT OF CHAIR. PT WAS NONCOMPLAINT TO REFRAINING FROM STANDING UP AND WAS AGITATED. THIS SN, RN, AND TREATER ASSISTED PT BACK TO BED USING CLAUDIA LIFT. PT TOLERATED WELL. PT IS NOW IN BED, CALL LIGHT IS WITHIN REACH, WARM BLANKET ON, AND BED ALARM ACTIVATED. PT IS COMFORTABLE WATCHING TV IN LOWERED BED WITH GUARD RAILS UP. PT HAS RETURNED TO SINUS RHYTHM.
--- NOTE | 2021-07-05 10:45 | NUR ---
PT WAS AGITATED TRYING TO GET OUT OF BED WITH BOTH LEGS HANGING OFF AND WANTING TO LEAVE. EVIDENCE OF INCREASED MOTTLING IN LOWER EXTREMETIES. DR. DC CAME TO SPEAK TO PATIENT AND NEW ORDERS WERE PUT IN. WITH FIRM DIRECTION AND CONSOLING, PT RETURNED TO LAYING POSITION. RIZO CATHETER AND RT JUGULAR CENTRAL LINE WERE REMOVED. PT TOLERATED WELL AND BOTH CATHETERS WERE INTACT UPON INSPECTION. LARGE SACRUM WOUND DRESSING CHANGED; MEDIHONEY, WET TO DRY, AND ALLEVIN APPLIED. PT WAS IN PAIN AND IRRITATED WITH PROCESS. IV FLUID DC'ED, AND EJ REMAINS SL. PT IS NOW RESTING IN BED WITH GUARD RAILS UP & BED ALARM ACTIVATED. ASSESSMENT DEFERRED AT THIS TIME TO ALLOW PT TO REST.
--- NOTE | 2021-07-05 13:05 | NUR ---
PT HAS INCREASED AGITATION & HOSTILITY, 5 MG OF HALDOL GIVEN PER PRN ORDER. [facility] NOTIFIED PER MD ORDER. WILL CONTINUE TO MONITOR VITALS & BEHAVIOR. PT IS RESTING WITH WARM BLANKET. BED MONITOR ON, CALL LIGHT IN PLACE, BED RAILS UP.
--- NOTE | 2021-07-05 14:09 | NUR ---
PT IS HAVING A DIFFICULT DAY-WANTS TO CALL 911 ON STAFF. RN AMMON STRATTON REQUESTED I NOT VISIT PT AT THIS TIME. WILL FOLLOW
--- NOTE | 2021-07-05 14:40 | NUR ---
PT IS RESTING IN BED AFTER ADMIN OF 5 MG HALDOL. WILL CONTINUE TO MONITOR. JESSIE TREVINO SPOKE TO DR. DC REGARDING INABILITY FOR PT TO TAKE LACTULOSE PO. INSTRUCTS TO HOLD LACTULOSE FOR NOW, POSSIBLITY OF ENEMA TONIGHT, BUT NO FURTHER LACTULOSE PO.
--- NOTE | 2021-07-05 16:06 | NUR ---
TURNED PT ON LEFT SIDE WITH SUPPORT OF PILLOWS UNDER POSTERIOR. PT TOLERATED TURNING WELL. WAS OFFERED SIPS OF SODA. PT IS RELAXING IN BED, CALL LIGHT WITHIN REACH AND BED ALARM ON.
--- NOTE | 2021-07-05 16:57 | NUR ---
Update from RN, pt has a stage 4 decub on coccyx. Pt mentally altered, Rn has been working with [facility] and pt will have an online appt with them tomorrow.
--- NOTE | 2021-07-05 17:30 | NUR ---
PT EXPRESSED NEED TO USE RESTROOM, PLACED BED LOPEZ UNDERNEATH AT 1500. PT HAD SOFT BOWEL MOVEMENT. CLEANED PATIENTS POSTERIOR AND REDRESSED SACRUM WOUND WITH WET TO DRY, MEDIHONEY, AND ALLEVIN. PT TOLERATED WELL. NEW MIKY PAD AND DEPENDS PLACED UNDER PT. EXPRESSES APPETITE, DRANK SOME SODA & EATING PUDDING WITHOUT DIFFICULTY. PER MD, DIET HAS BEEN INCREASED TO 2 GM SODIUM DIET.
--- NOTE | 2021-07-05 18:40 | NUR ---
PT WAS GIVEN NORCO PRN FOR PAIN. WILL CONTINUE TO MONITOR BEHAVIOR, VITALS, AND PAIN LEVEL. PT WAS ENCOURAGED TO EAT MEAL CORRESPONDING WITH 2 GM SODIUM RESTRICTION DIET. PT IS EATING SMALL BITES WITHOUT DIFFICULTY. PT IS WATCHING TV, CALL LIGHT WITHIN REACH.
--- NOTE | 2021-07-05 18:58 | NUR ---
REMAINS AWAKE, TAKING DINNER. PATIENT HAS BEEN ASKING STAFF FOR PHONE SO SHE CAN CALL 911. NO FUTHER CHANGES. REPORT TO NEXT SHIFT.
--- NOTE | 2021-07-05 19:31 | NUR ---
REPORT RECEIVED FROM SHAHLA RN, WILL CONTINUE PLAN OF CARE.
--- NOTE | 2021-07-05 20:00 | NUR ---
PATIENT IS RESTING IN BED. BLOOD SUGAR WAS 119. PATIENT MORE ALERT AND AWAKE THIS EVENING. REPOSITIONED IN BED. BREATHING EQUAL AND UNLABORED ON ROOM AIR. VITAL SIGNS DOCUMENTED. CALL LIGHT WITHIN REACH NO FUTHER NEEDS. BED ALARM ON.
--- NOTE | 2021-07-05 20:35 | NUR ---
PT SITTING UP IN BED AWAKE AND ORIENTED ONLY TO SELF AND THE FACT THAT SHE IS IN A HOSPITAL. PT ANSWERING BASIC QUESTIONS AND FOLLOWING COMMANDS PT IN NO APPARENT DISTRESS AT THIS TIME. PT ASSESSMENT COMPLETED AT THIS TIME (SEE CHART). LUNGS CLEAR IN UPPER LOBES, CLEAR/DIMINISHED IN THE BASES BILATERALLY. ACTIVE BOWEL TONES, NO BM OR VOID NOTED AT THIS TIME. PT REPORTS BASELINE NUMBNESS AND TINGLING, RADIAL AND PEDAL PULSES +1. LEFT IV PATENT AND FLUSHING EASILY. DRESSINGS ON R ARM AND R HAND C/D/I, DRESSING ON LEFT HEEL C/D/I, DRESSING ON COCCYX C/D/I AT THIS TIME. NO FURTHER NEEDS ASSESSED AT THIS TIME. SCHEDULED MEDICATIONS ADMINISTERED AT THIS TIME (SEE MAR). PT ABLE TO TAKE PO MEDS. PT NOW RESTING IN BED AND REPORTS NO FURTHER NEEDS, WILL CONTINUE PLAN OF CARE. CALL LIGHT IN REACH, BED IN LOWEST POSITION, BED ALARM ON.
--- NOTE | 2021-07-05 21:19 | NUR ---
PT RESTING IN BED AWAKE WATCHING TV. PT STILL ALERTED AND ORIENTED ONLY TO SELF AND "HOSPITAL" BUT NOT DATE, OR TOWN. PT REPORTS NO NEEDS AT THIS TIME WHEN ASKED. SCHEDULED IV CEFEPIME STARTED AND NOW INFUSING ORDERED. PT REPORTS NO FURTHER NEEDS AT THIS TIME, WILL CONTINUE PLAN OF CARE. BED IN LOWEST POSITION, BED ALARM ON.
--- NOTE | 2021-07-05 22:16 | NUR ---
PT NOTIFIED THIS RN SHE HAD A "MESS". PT STATED YES WHEN ASKED IF SHE WENT TO THE BATHROOM. PT INCONTINENT OF VOID AND A SMALL AMOUNT OF GREEN/BROWN LIQUID STOOL. PT WAS RESISTANT TO CARES AFTER TURNING HER TO HER SIDE STATING SHE DID NOT GO TO THE BATHROOM AND WAS REFUSING TO ASSIST WITH ROLLING. JESSIE PAUL IN TO ASSIST WITH TURNING PT. PERICARE DONE, WOUND CLEANSER USED TO CLEAN SOILED WOUND, GAUZE LIGHTLY PLACED IN WOUND, ALLEVYN PLACED OVER. NEW DRAW SHEET, PAD, AND ATTENDS NOW IN PLACE. PT REPOSITIONED UP ON THE BED WITH HELP FROM JESSIE PAUL. PT REPORTS NO FURTHER NEEDS AND IS NOW RESTING IN BED WATCHING TV. IV ABX INFUSING, PT IN NO APPARENT DISTRESS AND REPORTS NO FURTHER NEEDS WHEN ASKED, WILL CONTINUE PLAN OF CARE. CALL LIGHT IN REACH, BED IN LOWEST POSITION, BED ALARM ON.
--- NOTE | 2021-07-05 23:40 | NUR ---
PT LAYING IN BED SLEEPING AT THIS TIME. RESPIRATIONS EVEN AND UNLABORED, PT IN NO APPARENT DISTRESS AT THIS TIME. IV ABX INFUSING ORDERED. PT LEFT UNDISTURBED AT THIS TIME, WILL CONTINUE PLAN OF CARE. BED IN LOWEST POSITION, BED ALARM ON.
--- NOTE | 2021-07-05 23:58 | NUR ---
PT LAYING IN BED SLEEPING AT THIS TIME. VITALS ASSESSED, PT ASSESSMENT COMPLETED. PT AWAKES EASILY BUT STILL ONLY ORIENTED TO SELF. PT REPORTS NO NEEDS AT THIS TIME WHEN ASKED. LUNGS CLEAR IN UPPER LOBES, DIMINISHED/CLEAR IN BASES BILATERALLY. BOWEL TONES HYPOACTIVE. NO BM OR VOID NOTED AT THIS TIME. IV ABX INFUSING ORDERED. PT REPORTS NO FURTHER NEEDS WHEN ASKED AND RETURNED BACK TO SLEEP. CALL LIGHT IN REACH, BED IN LOWEST POSITION, BED ALARM ON, WILL CONTINUE PLAN OF CARE.
--- NOTE | 2021-07-06 00:31 | NUR ---
PT SLEEPING AT THIS TIME IN BED IN NO APPARENT DISTRESS. RESPIRATIONS EVEN AND UNLABORED, IV ABX INFUSING ORDERED. PT IN NO APPARENT DISTRESS AT THIS TIME AND WAS LEFT UNDISTURBED, CALL LIGHT IN REACH, BED IN LOWEST POSITION, BED ALARM ON, WILL CONTINUE PLAN OF CARE.
--- NOTE | 2021-07-06 02:05 | NUR ---
PT SLEEPING AT THIS TIME AND IS IN NO APPARENT DISTRESS. PT AWOKE EASILY, CBG ASSESSED BY JESSIE PAUL AND WAS 98. PT DENIES THE NEED TO VOID WHEN ASKED, PT ATTENDS CLEAN AT THIS TIME. PT REPOSITIONED UP IN BED, PILLOWS PLACED UNDER RIGHT SIDE. IV ABX COMPLETED AT THIS TIME, PT SALINE LOCKED. PT REPORTS NO NEEDS WHEN ASKED AND RETURNED BACK TO SLEEP, WILL CONTINUE PLAN OF CARE. CALL LIGHT IN REACH. BED IN LOWEST POSITION, BED ALARM ON.
--- NOTE | 2021-07-06 03:42 | NUR ---
PT LAYING IN BED SLEEPING AT THIS TIME. PT AWAKES BUT IS DROWSY AT THIS TIME. VITALS TAKEN AND PT ASSESSED (SEE CHART). PT ATTENDS CHECKED AND ARE CLEAN, PT DENIES NEED TO VOID, PT DUE TO VOID AT THIS TIME. PT REPORTS NO NEEDS AT THIS TIME AND ASKED AND DENIES THE NEED FOR WATER. RN LICHA IN TO ASSIST IN REPOSITIONING PT UP IN BED AND PLACING A PILLOW UNDER HER LEFT HIP. PT REPORTS NO FURTHER NEEDS AT THIS TIME AND IS IN NO APPARENT DISTRES. BED IN LOWEST POSITION, BED ALARM ON, WILL CONTINUE PLAN OF CARE.
--- NOTE | 2021-07-06 04:04 | NUR ---
PT LAYING IN BED SLEEPING. PT AWOKE BUT IS DROWSY AT THIS TIME. PT NOTIFIED THAT SHE WOULD BE BLADDER SCANNED. PT DENIES THE NEED TO VOID AND IS DUE TO VOID. PT SCAN SHOWED >618ML IN HER BLADDER. DR. DC CALLED AND NOTIFIED PT HAS NOT VOIDED SINCE 2209 AND NOTFIED OF BLADDER SCAN AMOUNT. NO NEW ORDERS GIVEN AT THIS TIME, WILL CONTINUE PLAN OF CARE. PT LAYING IN BED SLEEPING AT THIS TIME, WILL CONTINUE PLAN OF CARE. BED IN LOWEST POSITION, BED ALARM ON.
--- NOTE | 2021-07-06 06:55 | NUR ---
PT LAYING IN BED AWAKE AT THIS TIME, PT ORIENTED ONLY TO SELF AND LOCATION "HOSPITAL". PT IV ABX STARTED AND INFUSING ORDERED. PT ATTENDS CHECKED AND PT HAD A BM. PT BLADDER SCANNED AGAIN AND HAD 650ML URINE STILL PRESENT. RN LICHA IN TO ASSIST, PERICARE DONE. NEW DRESSING PLACED OVER COCCYX AFTER CLEANING WITH WOUND CLEANSER. GAUZE W MEDIHONEY AND ALLEVYN. NEW ATTENDS AND PAD IN PLACE. PT REPOSITIONED UP IN BED AFTERWARDS. PRN NORCO ADMINISTERED AT THIS TIME PT REPORTS PAIN BUT IS UNABLE TO QUANTIFY IT OR POINT TO LOCATION (SEE MAR). PT REPORTS NO FURTHER NEEDS, WILL CONTINUE PLAN OF CARE. BED IN LOWEST POSITION, BED ALARM ON.
--- NOTE | 2021-07-06 08:57 | NUR ---
PATIENT UP TO BSC X2 PERSON HEAVY ASSIST. PT WAS ABLE TO BEAR WEIGHT. PLAN TO TRANSFER TO MED/SURG TODAY. HR MORE ELEVATED WHILE MORE ACTIVE. PT UNABLE TO VOID AT THIS TIME. BLADDER SCANNED FOR [address] DC AWARE. DR. DC IN ROOM AT THIS TIME. PT ONLY ATE MINIMAL BREAKFAST. PT WANTING TO SIT AT EDGE OF BED AND NOT LAY DOWN AT THIS TIME. IV CEFEPIME REMAINS ON AT THIS TIME. CONTINUE TO MONITOR.
--- NOTE | 2021-07-06 08:58 | NUR ---
PATIENT UP TO BSC, 2PA. PATIENT TOLERATED WELL, BUT TIRED QUICKLY. PATIENTS HR IN 130S, AND BACK TO BED AT THIS TIME, SITITNG AT SIDE OF BED WITH ALARM ON FOR SAFETY. DR DC IN TO SEE PATIENT. CALL LIGHT IN EASY REACH
--- NOTE | 2021-07-06 13:54 | NUR ---
REPORT RECIEVED FROM JESSIE CHICAS. PT ASSISTED WITH RN NASRA TO BEDSIDE COMMODE LARGE LOOSE STOOL.NO URINE NOTED. DR AWARE. HEAVY 2-3 PERSON TRANSFER. PT STANDS AND SHUFFLES. PT ANSWERING QUESTIONS APPROPRIATLY, SLOW TO RESPOND. GIVEN A SMALL SPRITE REQUESTED. VS STABLE.
--- NOTE | 2021-07-06 14:26 | NUR ---
PT TOOK MEDICATION WO DIFFICULTY. AB RUNNING IN TO EJ, FLUSHED WELL.
--- NOTE | 2021-07-06 14:41 | NUR ---
THIS RN RECEIVED REPORT FROM RENE ROMAN. THIS RN TO ASSUME CARE OF PT.
--- NOTE | 2021-07-06 14:42 | NUR ---
CONSULT RECEIVED FOR NUTRITION. PATIENT ALERT BUT THINKS SHE IS GOING HOME TODAY. SHE IS NOW ON MED SURG. SHE DIDN'T EAT MUCH AT BREAKFAST AND LUNCH. SHE SAID SHE DOES NOT LIKE ENSURE. SHE IS ON A 2 GRAM SODIUM DIET WITH SOFT & BITE SIZED TEXTURE. THE ONLY FOOD PREFERENCE I COULD OBTAIN WAS SHE LIKES SLICED BANANAS AND EMIRATI TOAST. SHE HAS NOT HAD ANY BLOOD SUGAR BELOW 70 WHILE HERE. WILL ADD SLICED BANANA TO BREAKFAST ALONG WITH EMIRATI TOAST. NO OTHER NUTRITION INTERVENTION AT THIS TIME.
--- NOTE | 2021-07-06 14:44 | NUR ---
I ARRIVED AT PT'S JESSIE GARCIA TAKING PT AND MOVING HER TO M/S. WILL CHECK ONCE PT IS SETTLED
--- NOTE | 2021-07-06 15:00 | NUR ---
Spoke with Savanna, she wants to return to [facility]. Let her know has ordered for her to nd tomorrow. I have scheduled the WC van for 10: 45 after speaking with Naveen from [facility]. He will set a wc out for the van to pickle sorter. Pt uses a wc and denies other needs. Return to [facility] tomorrow.
--- NOTE | 2021-07-06 16:15 | NUR ---
THIS RN IN PTS ROOM WITH JEREMY MAN TO ASSIST TO RESTROOM DUE TO PT STATING SHE NEEDED TO USE COMMODE TO [place]ANG RN. PT ATTEMPTED THREE TIMES TO BSC. PT NOT ABLE TO TAKE A STEP TO COMMODE. PT BACK TO BED AND STATED THAT SHE DOESN'T FEEL LIKE SHE NEEDS TO GO NOW. PT NOW STATES THAT SHE IS HAVING MORE PAIN. THIS RN REITEREATED TO PT THAT HER PAIN MEDS ARE NOT DUE YET. PT STATED TO ASK MD. THIS RN ASKED MD- MD NOT COMFORTABLE WITH ORDERING MORE PAIN MEDS. THIS RN OFFERED TO REPOSITON PT. PT DENIED WANTING THIS.
--- NOTE | 2021-07-06 17:50 | NUR ---
THIS RN PROVIDED PT WITH PAIN MEDS.
--- NOTE | 2021-07-06 18:42 | NUR ---
THIS RN IN PTS ROOM TO BLADDER SCAN. PT TOLERATED WELL. 493ML NOTED IN BLADDER. AWARE.
--- NOTE | 2021-07-06 20:10 | NUR ---
ASSISTED PT. NURSE WITH VITALS AND I/Os. TOOK PATIED BS. WHITE BOARD UPDATED. FRESH WATER PROVIDED. CALL LIGHT LEFT WITHIN REACH. NO OTHER IMMEDIATE NEEDS AT THIS TIME.
--- NOTE | 2021-07-06 20:16 | NUR ---
pt repositioned in bed, does not use call light, call light at hands reach/ On very anxious, reassured verbally. cbg 121, no coverage needed. L IJ SL patent. On room air, lungs w ins wheeze, cleared with cough, no sob. abd soft, had xlarge bm at change of shift. buttocks area red and dressing chagned to wound wound/ulcer area. L heel dressing in place. multiple bruising area intact, healing. allevyn to R top of hand intact. 2 sin tears LFA and Lhand heling. tolerating diet pop and liquids. call light at hands reach
[2021-07-06] MEDS ORDERED: VITAMIN B-1100 MG PO (20:19)
[2021-07-06] MEDS ORDERED: RISPERIDONE0.25 MG PO (20:19)
[2021-07-06] MEDS ORDERED: PROPRANOLOL HCL10 MG PO (20:19)
[2021-07-06] MEDS ORDERED: FOLIC ACID1 MG PO (20:19)
[2021-07-06] MEDS ORDERED: GABAPENTIN400 MG PO (20:19)
[2021-07-06] MEDS ORDERED: HYDROCODON-ACE1 EA10 PO (20:19)
[2021-07-06] MEDS ORDERED: VITAMIN B COMP1 EAC1 PO (20:19)
[2021-07-06] MEDS ORDERED: LACTULOSE20 GM/30 M PO (20:19)
[2021-07-06] MEDS ORDERED: PANTOPRAZOLE SO40 MG PO (20:19)
[2021-07-06] MEDS ORDERED: AMITRIPTYLINE H50 MG PO (20:19)
[2021-07-06] MEDS ORDERED: CALCIUM CARBON200 MG PO (20:19)
--- NOTE | 2021-07-06 22:07 | NUR ---
ASSISTED PT. OFF BED LOPEZ. PROVIDED QUETA CARE AND A FRESH DEPEND AND FRESH BEDDING. REPOSITIONED PT. IN BED. PROVIDED PT. WITH PUDDING REQUESTED. CALL LIGHT LEFT WITHIN REACH. NO OTHER IMMEDIATE NEEDS AT THIS TIME.
--- NOTE | 2021-07-07 00:09 | NUR ---
RESTING, LAYING ON HER l SIDE, ON ROOM AIR, COMOFRTABLE, NO DISTRESS, EYES CLOSED, CALL LIGHT AND FLUIDS AT BEDSIDE.
--- NOTE | 2021-07-07 03:22 | NUR ---
pt awakes easily, on room air, clear lungs. L external jugular IV site/sl intact. flushes easily. was incontinent of large liquid bm and urine. skin care,Desitin cream, buttocks allevyn dressing intact. helped with turning and [id number]. L heel allevyn in place, dressing to R upper arm and Allevyn to R hand, koban to L FA skin tears in place. bruising over arms, neck, legs healing. coop with assessment. toleraing liquids too
--- NOTE | 2021-07-07 04:25 | NUR ---
Resting, no distress, on room air, call light and fluids at bedside.
--- NOTE | 2021-07-07 06:16 | NUR ---
Pt has slept most of this shift. On room air, no sob with exertion. L external Jugular IV site patent. no c/o adverse reaction to abx. Has tolerated fluids and diet well. CBG wNL, no coverage needed. bruising over neck,chest,arms, periarea, legs improving. skin tears no changes. Allevyn and packing applied to buttocks area, Desiting and barrier cream to kam and buttocks area readness and under pannus. redness R mid calf , Allevyn dressing to L heel Rhand , LE elevated with heel protectors. Has been incontinent of large amounts of liquid bm, nad also of urine. clean attends in place.
--- NOTE | 2021-07-07 07:15 | NUR ---
REPORT RECIEVED FROM FLAT BED KNITTER RN, PT RESTING IN BED NO PAIN AT THE MOMENT AWAKE AND ALERT, PLAN FOR TRANSFER BACK TO [place] TODAY FACE AND FILL PACKER CHARLENE WORKING WITH PATIENT WELL
--- NOTE | 2021-07-07 07:52 | NUR ---
Faxed orders and med list to Naveen at [facility]. Will fax covid test and dc summary when completed.
--- NOTE | 2021-07-07 08:00 | NUR ---
RT COLLECTED RAPID COVID 19 SWAB WITH NO COMPLICATIONS AT THIS TIME.
--- NOTE | 2021-07-07 08:15 | NUR ---
PT WAS IN BED. PT STATED THEY NEEDED TO BE CHANGED. THIS SHADOWGRAPH OPERATOR CHANGED PT. RN LOWELL AND JESSIE REYES CHANGED PT'S DRESSING DUE TO IT BEING SOILED. PT IS NOW UP IN THE CHAIR. WHITEBOARD IS UPDATED. CALL LIGHT IS WITHIN REACH. NO FURTHER NEEDS AT THIS TIME.
--- NOTE | 2021-07-07 08:30 | NUR ---
DRESSING CHANGE COMPLETED TO COCCYX D/T SOILING FROM STOOL. PT ROLLED TO LEFT SIDE WTIH ASSISTENCE FROM HYDROELECTRIC PLANT TECHNICIAN. OLD DRESSING REMOVED. PACKING REMOVED AND DISGAURDED. WOUND WASHED WITH WOUND CLEANSER AND PATTED DRY AROUND EDGES. MASTESOL APPLIED TO QUETA-WOUND. SALINE SOAKED KERLEX LIGHT PACKED INTO WOUND. AMY ROMAN TOOK OVER FROM THIS POINT TO PLACE ALLEVYN. PT TOLERATED WELL WITH MINIMAL PAIN.
--- NOTE | 2021-07-07 08:53 | NUR ---
THIS RN TO ROOM TO ASSIST WITH PT TRANSFER. DRESSING CHANGED BY JESSIE ETIENNE. LOWELL CALLED AWAY AND THIS RN FINISHES DRESSING BY APPLYING ALLEVYN OVER THE TOP OF MOISTENED GAUZE. (SEE DRESSING CHANGE DOCUMENTATION BY JESSIE ETIENNE). DESITIN CREAM APPLIED, DEPENDS IN PLACE. PT DRESSED IN SWEATER FROM HOME AND HOSPITAL PANTS. PT TRANSFERED TO CHAIR WITH 2 PERSON ASSIST AND FRONT WHEEL WALKER PIVOT TRANSFER. PT TOLERATED WELL AND WAS ABLE TO STAND ON HER OWN. BREAKFAST DELIVERED. PT EATING BREAKFAST UP TO CHAIR. PTS PRIMARY RN UPDATED. NO ADDITIONAL REQUESTS OR COMPLAINTS. CALL LIGHT WITHIN REACH.
--- NOTE | 2021-07-07 09:00 | NUR ---
RN IN ROOM TO DO MORNING ASSESSMENT, AWAKE ALERT, DRESSED UP IN CHAIR, LUNGS CLEAR MULTIPLE SKIN TEARS ON ARMS COVERED WITH ALLEYVANS LINING SEWER AQND INSTRUCTOR GIVING PT MEDICATIONS COMPLAINING OF PAIN PRN MEDICATION NORCO GIVEN
--- NOTE | 2021-07-07 09:36 | NUR ---
Faxed dc summary, covid result, wound vac orders. Spoke with pt and updated she will be leaving at 10:45. She asks about her wc and informed wc van will pick it up and bring to her for transport.
--- NOTE | 2021-07-07 10:00 | NUR ---
Patient is awake and oriented. Transfered from bed to chair, tolerated well. Morning medications given. Patient demanded pain medication and refused lactulose. Morning assessment completed. Patient refused to let me see her feet or her stomach, stating she "does not want to be poked and prodded anymore". I explained I would only be looking but patient still refused. Vitals were taken. Patient's oximeter would not read due to patient's cool hands, warm blanket and hot pack were given.
--- NOTE | 2021-07-07 10:00 | NUR ---
PT ASSISTED GETTING DRESSED BY PRINT AND PATTERN DESIGNER AND PRODUCT MANUFACTURING PROFESSIONAL IV REMOVED BY STUDENT AND NURSING INTRUCTOR.
--- NOTE | 2021-07-07 12:47 | NUR ---
PT SITTING IN CHAIR-FIRST DAY TO CARRY ON A CONVERSATION. PT SITTING IN CHAIR, ALERT AND SEEMED ANXIOUS TO VISIT. GAVE ENCOURAGEMENT, SHE IS WAITING TO DC.
== END 2021-07-07 10:46 | DRG 441 ==
LOC: ED 16:48 → CCU 19:28 → MS 07-06 13:56
PROVIDERS: ADMIT Internal Medicine; ATTEND Internal Medicine
DX: K72.00 Acute and subacute hepatic failure without coma (principal); L89.154 Pressure ulcer of sacral region, stage 4; L89.624 Pressure ulcer of left heel, stage 4; K86.1 Other chronic pancreatitis; E72.20 Disorder of urea cycle metabolism, unspecified; E16.2 Hypoglycemia, unspecified; J44.9 Chronic obstructive pulmonary disease, unspecified; F20.9 Schizophrenia, unspecified; Z20.822 Contact with and (suspected) exposure to COVID-19; I48.0 Paroxysmal atrial fibrillation; D63.8 Anemia in other chronic diseases classified elsewhere; Z98.84 Bariatric surgery status; K21.9 Gastro-esophageal reflux disease without esophagitis; Z79.899 Other long term (current) drug therapy; G89.29 Other chronic pain; Z98.51 Tubal ligation status
CPT/HCPCS: 36415; 36556; 36600; 70450; 71045; 80048; 80053; 80503; 81001; 82140; 82803; 83690; 83735; 84100; 84484; 84681; 85025; 85610; 86850; 86900; 86901; 87088; 93005; 93010; 97162; 99285-25; C9113; C9803; J0610; J0692; J0696; J1610; J1630; J1650; J1953; J3480; J7060; U0003

== ENCOUNTER 2021-07-08 15:03 | Observation (INO) | payer OTHER ==
[~2021-07-08] VITALS: Ht 172.7 cm; Wt 97.6 kg
--- NOTE | ~2021-07-08 | EKG ---
[facility] [address] [facility] [place], [place] [address] Draft EK completed, results pending confirmation PATIENT NAME: BLACK WALLACE Electrocardiogram DATE OF : 63 PHYSICIAN: PRELIMINARY REPORT #: [id number] REPORT IS CONFIDENTIAL AND NOT TO BE RELEASED WITHOUT AUTHORIZATION
[~2021-07-08 15:03] MED LIST changes: +AMITRIPTYLINE H50 MG PO; +CALCIUM 600-VI1 EA10 PO; +CALCIUM CARBON200 MG PO; +DULCOLAX10 MG PR; +DULCOLAX5 MG PO; +FLEET ENEMA133 ML PR; +FOLIC ACID1 MG PO; +GABAPENTIN400 MG PO; +GERI-KOT8.6 MG PO; +LACTULOSE20 GM/30 M PO; +PANTOPRAZOLE SO40 MG PO; +POTASSIUM CHLO10 ME1 PO; +PROPRANOLOL HCL10 MG PO; +RISPERIDONE0.25 MG PO; +VITAMIN B COMP1 EAC1 PO; +VITAMIN B-1100 MG PO; +VITAMIN D31250 MC1 PO
--- OUTSIDE RECORDS SUMMARY | 2021-07-08 15:04 | XMS ---
PreManage Notification: BLACK WALLACE Security Senior Medical Writer Events No recent Security Events currently on file CRITERIA MET - [facility] - 2 Visits in 30 Days - 6 ED Vis[facility] in 6 Months [facility] KATIE DE LA CRUZ Lead Business Analyst Current ANA Story PHONE: [phone] [facility] Current PHONE: Unknown SAMUEL WADE Internal Medicine Current PHONE: Unknown Elly Escudero Pari Mutuel Ticket Cashier/Vending Machine Technician 02/18/2021-Current PHONE: [phone] JACOB RASHID Nurse Practitioner Current PHONE: [phone] REBECA BURNETT Nurse Practitioner: Current PHONE: Unknown BRITNI ELLINGTON Internal Medicine Current PHONE: Unknown BLAISE DE SOUZA Internal Medicine Current PHONE: [phone] LUPE BOOTHE Land Mobile Radio Technician Current PHONE: [phone] JONATHAN FREGOSO Nurse Practitioner Current PHONE: [phone] MICHEAL LAUREN I. Physician Dice Maker Current PHONE: Unknown KENNETH BURDICK Pari Mutuel Ticket Cashier/Vending Machine Technician Current INACTIVE PHONE: [phone] ERIN Nurse Sumit GALLARDO PHONE: [phone] KENNY [facility] Current PHONE: Unknown CONCEPCIÓN [facility] Current PHONE: [phone] GIGI BURCH Registered Nurse Current PHONE: [phone] DANIELLE VARGAS Physician Current PHONE: Unknown David has no Care Guidelines for this patient. Lidia VISIT COUNT (12 MO.) [address] [place] TOTAL 8 NOTE: Visits indicate total known visits. 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 - Contusion of left lower leg, initial encounter - Other custodial (current) drug therapy - Chronic obstructive pulmonary disease, unspecified - nursing home (current) use of anticoagulants - History of falling 05/31/2021 19:26 [facility] [place] TYPE: Emergency COMPLAINT: - WEAKNESS DIAGNOSES: - Chronic obstructive pulmonary disease, unspecified - Hypoxemia - Other custodial (current) drug therapy - Heart failure, unspecified - Gastro-esophageal reflux disease without esophagitis 05/20/2021 17:12 [facility] [place] TYPE: Emergency COMPLAINT: - SOB 02/15/2021 15:01 [facility] [place] TYPE: Emergency DIAGNOSES: - PAIN 02/14/2021 10:[address] [facility] [address] [facility] [place] TYPE: Emergency DIAGNOSES: - Urinary tract infection, site not specified - Pressure ulcer of sacral region, stage 3 - Adult failure to thrive - BED SORES 02/08/2021 12:11 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 - Alcohol abuse, uncomplicated - Pressure ulcer of sacral region, stage 4 - Acute respiratory distress syndrome - Schizophrenia, unspecified - Morbid (severe) obesity due to excess calories - Personal history of Methicillin resistant Staphylococcus aureus infection - truck terminal manager (current) use of anticoagulants - Chronic pain syndrome - Chronic pain syndrome - Nicotine dependence, cigarettes, uncomplicated - Morbid (severe) obesity due to excess calories - Body mass index [BMI] 38.0-38.9, adult - Other custodial (current) drug therapy - Alcohol-induced chronic pancreatitis [...] uncomplicated - Pneumonia, unspecified organism - Other custodial (current) drug therapy - Nicotine dependence, cigarettes, uncomplicated - Acute respiratory distress syndrome - Personal history of Methicillin resistant Staphylococcus aureus infection 02/15/2021 15:01 [facility] [place] TYPE: Medical Surgical DIAGNOSES: - Acute cystitis with hematuria - Adult failure to thrive - Pressure ulcer of sacral region, unstageable - Pressure-induced deep tissue damage of sacral region - Acute cystitis without hematuria 07/30/2020 21:50 [facility] TYPE: Internal Medicine DIAGNOSES: 10002. Cutaneous abscess, unspecified 83438. Abscess [L02.91] 38970. Intrtaabdominal Abscess 81594. Chronic diastolic (congestive) heart failure 41817. Acute pancreatitis with uninfected necrosis, unspecified 42578. Morbid (severe) obesity due to excess calories 44126. Unspecified protein-calorie malnutrition 26758. Body mass index [BMI] 45.0-49.9, adult [email or web address]
--- NOTE | 2021-07-08 22:30 | NUR ---
PT RESTING COMFORTABLY, UNABLE TO ANSWER ANY QUESTIONS, ADMISSION ASSESSMENT ATTEMPTED HOWEVER UNSURE OF MANY HISTORY QUESTIONS DUE TO PATIENTS MENTAL STATUS, VITAL SIGNS WNL, NO IMMEDIATE CONCERNS, WILL CONTINUE TO MONITOR
--- NOTE | 2021-07-09 01:51 | NUR ---
PT CONDITION UNCHANGED FROM PREVIOUS ASSESSMENT, VITALS WNL, OXYGEN AT 1 LPM VIA N/C, NO CONCERNS AT THIS TIME, WILL CONTINUE TO MONTIOR
--- NOTE | 2021-07-09 03:13 | NUR ---
PTS BLOOD PRESSURE TRENDING DOWNWARD DURING SHIFT WITH DECREASED URINE OUTPUT. DR GARCIA NOTIFIED, DR GARCIA STATED TO CONTINUE TO MONTIOR AND IF SYSTOLIC REACHES 70'S TO NOTIFY HIM
--- NOTE | 2021-07-09 05:42 | NUR ---
PT HAD UNEVENTFUL NIGHT, VITALS WNL, ASSESSMENT REMAINS UNCHANGED, RIZO DISCONTINUED PER ORDER, NO IMMEDIATE CONCERNS AT THIS TIME, WILL CONTINUE TO MONITOR
--- NOTE | 2021-07-09 07:30 | NUR ---
REPORT RECEIVED FROM ZOFIA ROMAN. PT RESTING IN BED WITH EYES CLOSED, RESP EVEN AND UNLABORED.
--- NOTE | 2021-07-09 07:40 | NUR ---
PT REPOSITIONED ONTO LEFT SIDE, HEELS ELEVATED UP ON PILLOWS. PT AROUSES SOME WITH REPOSITIONING, OPENS EYES AND MOANS SLIGHTLY THEN CLOSES EYES AND GOES BACK TO SLEEP. HR 60, RR 8, SPO2 99%.
--- NOTE | 2021-07-09 08:02 | NUR ---
RT IN TO CHECK ON PT
--- NOTE | 2021-07-09 09:08 | NUR ---
DR GARCIA IN TO SEE PT
--- NOTE | 2021-07-09 09:23 | NUR ---
1L LR BOLUS STARTED PER DR GARCIA FOR CONTINUED LOW BP'S. LAB IN TO DRAW FOR NEW LAB ORDERS.
--- NOTE | 2021-07-09 10:27 | NUR ---
US IN TO DO ABD ULTRASOUND. PT JUST REPOSITIONED, DRESSING REMOVED FROM SACRUM, PACKING REMOVED AND DR GARCIA IN TO SEE IT. WOUND HAD DARK RED LIQUID DRAINING FROM IT, PACKING WAS SATURATED WITH SEROSANG FLUID.
--- NOTE | 2021-07-09 11:30 | NUR ---
PT SITTING UP IN BED, EATING SMALL BITES OF JELLO. ULTRASOUND COMPLETED, GIVEN PT HER PO LACTULOSE NOW BUT SHE DOES NOT LIKE IT MUCH, TAKING SMALL SIPS AT A TIME. ASSESSMENT DONE. PT MORE ALERT AND AWAKE THAN PREVIOUSLY.
[2021-07-09] MEDS ORDERED: LASIX20 MG PO ×3 (11:43→14:34)
[2021-07-09] MEDS ORDERED: TUMS200 MG PO (11:45)
[2021-07-09] MEDS ORDERED: BUPRENORPHINE HC8 MG SL (11:52)
--- NOTE | 2021-07-09 13:00 | NUR ---
PT DID NOT LIKE LUNCH, SECOND LUNCH ORDERED AND SHE IS SLOWLY EATING BITES OF IT.
[2021-07-09] MEDS ORDERED: GABAPENTIN100 MG PO (14:20)
[2021-07-09] MEDS ORDERED: SPIRONOLACTONE50 MG PO (14:27)
[2021-07-09] MEDS ORDERED: AMITRIPTYLINE H25 MG PO (14:29)
--- NOTE | 2021-07-09 14:45 | NUR ---
PT REPOSITIONED, WOUND CLEANED WITH WOUND EGG FACTORY WORKER, MEDIHONEY APPLIED TO WOUND BED AND THEN WOUND PACKED WITH GAUZE SOAKED WITH STERIL WATER AND COVERED WITH SACRAL ALLEVYN. DESITIN APPLIED TO DERMATITS ON POSTERIOR THIGHS.
[2021-07-09] MEDS ORDERED: SPIRONOLACTONE25 MG PO (14:50)
--- NOTE | 2021-07-09 16:15 | NUR ---
DISHCARGE INSTRUCTIONS GIVEN TO PT, WELL REPORT CALLED TO TAJ ROMAN AT [facility]. IVS X2 DC'D WITH TIPS INTACT.
== END 2021-07-09 16:41 | disposition home or self-care (01) ==
LOC: ED 15:03 → CCU 15:04
PROVIDERS: ADMIT Internal Medicine; ATTEND Internal Medicine
DX: J96.00 Acute respiratory failure, unspecified whether with hypoxia or hypercapnia (principal); G92.8 Other toxic encephalopathy; I95.9 Hypotension, unspecified; K70.40 Alcoholic hepatic failure without coma; I48.0 Paroxysmal atrial fibrillation; I50.32 Chronic diastolic (congestive) heart failure; L89.154 Pressure ulcer of sacral region, stage 4; J44.9 Chronic obstructive pulmonary disease, unspecified; F20.9 Schizophrenia, unspecified; K70.31 Alcoholic cirrhosis of liver with ascites; K21.9 Gastro-esophageal reflux disease without esophagitis; Z79.01 Long term (current) use of anticoagulants; Z20.822 Contact with and (suspected) exposure to COVID-19
CPT/HCPCS: 36415; 70450; 71045; 76705; 80053; 81001; 82140; 82803; 83735; 85025; 85610; 93005; 93010; 94002; C9803; G0480; J2310; J7030; J7121; U0003

== ENCOUNTER 2021-07-09 20:09 | Emergency (ER) | payer OTHER ==
[~2021-07-09] VITALS: Ht 172.7 cm; Wt 101.3 kg
[~2021-07-09 20:09] MED LIST changes: +AMITRIPTYLINE H25 MG PO; +BUPRENORPHINE HC8 MG SL; +GABAPENTIN100 MG PO; +SPIRONOLACTONE25 MG PO; +SPIRONOLACTONE50 MG PO; +TUMS200 MG PO
--- OUTSIDE RECORDS SUMMARY | 2021-07-09 20:12 | XMS ---
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 No recent Security Events currently on file CRITERIA MET - [facility] - 2 Visits in 30 Days - PDMP - 6 ED Visits in 6 Months CARE PROVIDERS KATIE DE LA CRUZ Claim Review Medical Director Current ANA Story PHONE: [phone] [facility] Current PHONE: Unknown SAMUEL WADE Internal Medicine Current PHONE: Unknown Elly Escudero Director Of Online Education/Refurbish Technician 02/18/2021-Current PHONE: [phone] JACOB RASHID Nurse Practitioner Current PHONE: [phone] REBECA BURNETT Nurse Practitioner: Current PHONE: Unknown BRITNI ELLINGTON Internal Medicine Current PHONE: Unknown BLAISE DE SOUZA Internal Medicine Current PHONE: [phone] LUPE BOOTHE Clerical Transcriber Current PHONE: [phone] JONATHAN FREGOSO Nurse Practitioner Current PHONE: [phone] MICHEAL LAUREN I. Physician [employer] Packaging Machine Operator Current PHONE: Unknown KENNETH BURDICK Director Of Online Education/Refurbish Technician Current INACTIVE PHONE: [phone] ERIN Nurse Sumit GALLARDO PHONE: [phone] KENNY [facility] Nursing [facility] Current PHONE: Unknown [facility] Current PHONE: [phone] GIGI BURCH Registered Nurse Current PHONE: [phone] DANIELLE VARGAS Physician Current PHONE: Unknown David has no Care Guidelines for this patient. Lidia VISIT COUNT (12 MO.) [address] [place] TOTAL 9 NOTE: Visits indicate total known visits. ED/UCC VISIT TRACKING (12 MO.) 07/09/2021 20:10 [facility] TYPE: Emergency COMPLAINT: - R LEG LAC 07/08/2021 15:03 [facility] TYPE: Emergency COMPLAINT: - UNRESPONSIVE 07/02/2021 16:48 [facility] TYPE: Emergency COMPLAINT: - ALTERED 06/10/2021 08:16 [facility] TYPE: Emergency COMPLAINT: - FALL,TAILBONE PAIN DIAGNOSES: - Contusion of right lower leg, initial encounter - Heart failure, unspecified - Pain in left hip - Contusion of left foot, initial encounter - FPC (current) use of inhaled steroids - Fall on same level, unspecified, initial encounter - Gastro-esophageal reflux disease without esophagitis - FPC (current) use of opiate analgesic - Contusion of left lower leg, initial encounter - Other custodial (current) drug therapy - Chronic obstructive pulmonary disease, unspecified - FPC (current) use of anticoagulants - History of falling 05/31/2021 19:26 [facility] TYPE: Emergency COMPLAINT: - WEAKNESS DIAGNOSES: - Chronic obstructive pulmonary disease, unspecified - Hypoxemia - Other custodial (current) drug therapy - Heart failure, unspecified - Gastro-esophageal reflux disease without esophagitis 05/20/2021 17:12 [facility] TYPE: Emergency COMPLAINT: - SOB 02/15/2021 15:01 [facility] [place] TYPE: Emergency DIAGNOSES: - PAIN 02/14/2021 10:48 [facility] [place] TYPE: Emergency DIAGNOSES: - Urinary tract infection, site not specified - Pressure ulcer of sacral region, stage 3 - Adult failure to thrive - BED SORES 02/08/2021 12:11 [facility] [place] TYPE: Emergency DIAGNOSES: - Pressure ulcer of sacral region, stage 3 - FAILURE TO THRIVE - Adult failure to thrive INPATIENT VISIT TRACKING (12 MO.) 07/08/2021 15:04 [facility] TYPE: Observation COMPLAINT: - RESPIRATORY FAILURE 07/02/2021 19:28 [facility] TYPE: Medical Surgical COMPLAINT: - ALTERED MENTAL STATUS, HYPOGLYCEMIA 05/20/2021 20:27 [facility] TYPE: Medical Surgical COMPLAINT: - PNEUMONIA DIAGNOSES: - Viral pneumonia, unspecified - Bariatric surgery status - Conversion disorder with motor symptom or deficit - FPC (current) use of anticoagulants - Alcohol abuse, uncomplicated - Pressure ulcer of sacral region, stage 4 - Acute respiratory distress syndrome - Schizophrenia, unspecified - Morbid (severe) obesity due to excess calories - Personal history of Methicillin resistant Staphylococcus aureus infection - FPC (current) use of anticoagulants - Chronic pain syndrome - Chronic pain syndrome - Nicotine dependence, cigarettes, uncomplicated - Morbid (severe) obesity due to excess calories - Body mass index [BMI] 38.0-38.9, adult - Other intermission coordinator (current) drug therapy - Alcohol-induced chronic pancreatitis [...] Methicillin resistant Staphylococcus aureus infection 02/15/2021 15:01 [facility] [place] TYPE: Medical Surgical DIAGNOSES: - Acute cystitis with hematuria - Adult failure to thrive - Pressure ulcer of sacral region, unstageable - Pressure-induced deep tissue damage of sacral region - Acute cystitis without hematuria 07/30/2020 21:50 [facility] TYPE: Internal Medicine DIAGNOSES: 06656. Cutaneous abscess, unspecified 90998. Abscess [L02.91] 15800. Intrtaabdominal Abscess 90035. Chronic diastolic (congestive) heart failure . Acute pancreatitis with uninfected necrosis, unspecified . Morbid (severe) obesity due to excess calories . Unspecified protein-calorie malnutrition . Body mass index [BMI] 45.0-49.9, adult [email or web address]
== END 2021-07-09 22:19 ==
LOC: ED 20:09
DX: S81.811A Laceration without foreign body, right lower leg, initial encounter (principal); J44.9 Chronic obstructive pulmonary disease, unspecified; K21.9 Gastro-esophageal reflux disease without esophagitis; I50.9 Heart failure, unspecified; Z79.899 Other long term (current) drug therapy; X58.XXXA Exposure to other specified factors, initial encounter
CPT/HCPCS: 12005; 99283-25

== ENCOUNTER 2021-07-10 21:02 | Emergency (ER) | payer OTHER ==
[~2021-07-10] VITALS: Ht 172.7 cm; Wt 101.2 kg
--- OUTSIDE RECORDS SUMMARY | 2021-07-10 21:04 | XMS ---
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 Events No recent Security Events currently on file CRITERIA MET - [facility] - 2 Visits in 30 Days - 6 ED Visits in 6 Months - [facility] C[facility] PROVIDERS KATIE DE LA CRUZ Director Of Global Sales Current ANA Story PHONE: [phone] [facility] Current PHONE: Unknown SAMUEL WADE Internal Medicine Current PHONE: Unknown Elly Escudero Methods Analyst/Neon Installer 02/18/2021-Current PHONE: [phone] JACOB RASHID Nurse Practitioner Current PHONE: [phone] REBECA BURNETT Nurse Practitioner: Current PHONE: Unknown BRITNI ELLINGTON Internal Medicine Current PHONE: Unknown BLAISE DE SOUZA Internal Medicine Current PHONE: [phone] LUPE BOOTHE Biological Science Technician Fish Current PHONE: [phone] JONATHAN FREGOSO Nurse Practitioner Current PHONE: [phone] MICHEAL LAUREN I. Physician Mysql Database Administrator Current PHONE: Unknown KENNETH BURDICK Methods Analyst/Neon Installer Current INACTIVE PHONE: [phone] ERIN Nurse Sumit GALLARDO PHONE: [phone] KENNY [facility] Current PHONE: Unknown CON[facility]PCI[facility]N [facility] Current PHONE: [phone] GIGI BURCH Registered Nurse Current PHONE: [phone] DANIELLE VARGAS Physician Current PHONE: Unknown David has no Care Guidelines for this patient. Lidia VISIT COUNT (12 MO.) [address] [place] TOTAL 10 NOTE: Visits indicate total known visits. ED/UCC VISIT TRACKING (12 MO.) 07/10/2021 21:02 [facility] TYPE: Emergency COMPLAINT: - ALTERED 07/09/2021 20:10 [facility] TYPE: Emergency [...] Contusion of left foot, initial encounter - cook fruit (current) use of inhaled steroids - Fall on same level, unspecified, initial encounter - Gastro-esophageal reflux disease without esophagitis - cook fruit (current) use of opiate analgesic - Contusion of left lower leg, initial encounter - Other foreign banknote teller trader (current) drug therapy - Chronic obstructive pulmonary disease, unspecified - cook fruit (current) use of anticoagulants - History of falling 05/31/2021 19:26 [facility] TYPE: Emergency COMPLAINT: - WEAKNESS DIAGNOSES: - Chronic obstructive pulmonary disease, unspecified - Hypoxemia - Other skilled nursing (current) drug therapy - Heart failure, unspecified - Gastro-esophageal reflux disease without esophagitis 05/20/2021 17:12 [facility] TYPE: Emergency COMPLAINT: - SOB 02/15/2021 15:01 [facility] TYPE: Emergency DIAGNOSES: - PAIN 02/14/2021 10:48 [facility] TYPE: Emergency DIAGNOSES: - Urinary tract infection, site not specified - Pressure ulcer of sacral region, stage 3 - Adult failure to thrive - BED SORES 02/08/2021 12:11 [facility] TYPE: Emergency DIAGNOSES: - Pressure ulcer of sacral region, stage 3 - FAILURE TO THRIVE - Adult failure to thrive INPATIENT VISIT TRACKING (12 MO.) 07/08/2021 15:04 [facility] TYPE: Observation COMPLAINT: - RESPIRATORY FAILURE DIAGNOSES: - Paroxysmal atrial fibrillation - Schizophrenia, unspecified - alf (current) use of anticoagulants - Pressure ulcer of sacral region, stage 4 - Acute respiratory failure, unspecified whether with hypoxia or hypercapnia - Alcoholic hepatic failure without coma - Hypotension, unspecified - Alcoholic cirrhosis of liver with ascites - Gastro-esophageal reflux disease without esophagitis - Chronic diastolic (congestive) heart failure - OTHER TOXIC ENCEPHALOPATHY - Chronic obstructive pulmonary disease, unspecified 07/02/2021 19:28 [facility] TYPE: Medical Surgical COMPLAINT: - ALTERED MENTAL STATUS, HYPOGLYCEMIA 05/20/2021 20:27 [facility] TYPE: Medical Surgical COMPLAINT: - PNEUMONIA DIAGNOSES: - Viral pneumonia, unspecified - Bariatric surgery status - Conversion disorder with motor symptom or deficit - cook fruit (current) use of anticoagulants - Alcohol abuse, uncomplicated - Pressure ulcer of sacral region, stage 4 - Acute respiratory distress syndrome - Schizophrenia, unspecified - Morbid (severe) obesity due to excess calories - Personal history of Methicillin resistant Staphylococcus aureus infection - alf (current) use of anticoagulants - Chronic pain syndrome - Chronic pain syndrome - Nicotine dependence, cigarettes, uncomplicated - Morbid (severe) obesity due to excess calories - Body mass index [BMI] 38.0-38.9, adult - Other skilled nursing (current) drug therapy - Alcohol-induced chronic pancreatitis [...] uncomplicated - Pneumonia, unspecified organism - Other foreign 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 [place] TYPE: Medical Surgical DIAGNOSES: - Acute cystitis with hematuria - Adult failure to thrive - Pressure ulcer of sacral region, unstageable - Pressure-induced deep tissue damage of sacral region - Acute cystitis without hematuria 07/30/2020 21:50 [facility] TYPE: Internal Medicine DIAGNOSES: 31331. Cutaneous abscess, unspecified 37430. Abscess [L02.91] 63453. Intrtaabdominal Abscess 28390. Chronic diastolic (congestive) heart failure 11597. Acute pancreatitis with uninfected necrosis, unspecified 31848. Morbid (severe) obesity due to excess calories 25791. Unspecified protein-calorie malnutrition 84267. Body mass index [BMI] 45.0-49.9, adult [email or web address]
[2021-07-11] MEDS ORDERED: K-TAB ER20 MEQ PO
[2021-07-11] MEDS ORDERED: PROPRANOLOL HCL10 MG PO (00:02)
[2021-07-11] MEDS ORDERED: DULCOLAX10 MG PR (00:04)
== END 2021-07-11 00:10 ==
LOC: ED 21:02
DX: G93.41 Metabolic encephalopathy (principal); J44.9 Chronic obstructive pulmonary disease, unspecified; K21.9 Gastro-esophageal reflux disease without esophagitis; I50.9 Heart failure, unspecified; Z79.899 Other long term (current) drug therapy; Z79.51 Long term (current) use of inhaled steroids
CPT/HCPCS: 36415; 80053; 82140; 85025; 99285